=== PATIENT | male | born 1980 | race Caucasian/White ===

== ENCOUNTER 2021-01-09 23:24 | Emergency (ER) | payer SELFPAY ==
[~2021-01-09] VITALS: Ht 167.6 cm; Wt 65.9 kg
[~2021-01-09 23:24] MED LIST: 00186-0372-20 IH; PROVENTIL0.09 MG/A1 IH
[2021-01-09 23:33] VITALS: TEMP 98.5
[2021-01-10 00:13] LABS: BASO % 0.4 % (0.0-2.0); EOS % 0.3 % (0-4.0); GRAN # 7.7 (1.4-6.5); GRAN % 79.4 % (42.2-75.2); HEMATOCRIT 42.4 % (42.0-52.0); HEMOGLOBIN 14.9 g/dl (13.5-18.0); LYMPH # 0.8 (1.2-3.4); LYMPH % 8.3 % (20.0-51.0); MEAN CELL VOLUME 93 fl (80.0-100.0); MEAN CORPUSCULAR HEMOGLOBIN 33 pg (27.0-31.0); MEAN CORPUSCULAR HGB CONC 35 g/dl (33.0-37.0); MEAN PLATELET VOLUME 9.5 fl (7.4-10.4); MONO % 10.4 % (1.7-9.3); PLATELET COUNT 149 K/mm3 (130-400); RED BLOOD COUNT 4.57 M/mm3 (4.20-5.60); REDCELL DISTRIBUTION WIDTH-CV 12.5 % (11.5-14.5)
[2021-01-10 00:28] LABS: BLOOD UREA NITROGEN 14 mg/dL (9-20); CARBON DIOXIDE 27 mmol/L (22-30); CHLORIDE 94 mmol/L (98-107); CREATININE, serum 0.81 (0.66-1.25); GLUCOSE 107 mg/dL (74-106); POTASSIUM 3.2 mmol/L (3.4-5.0); SODIUM 135 mmol/L (137-145)
[2021-01-10 00:29] LABS: ALANINE AMINOTRANSFERASE 162 U/L (4-49); ALBUMIN 4.8 gm/dL (3.5-5.0); ALKALINE PHOSPHATASE 76 U/L (50-136); ANION GAP 14 mmol/L (7-16); AST,SGOT 473 U/L (15-37); BILIRUBIN,TOTAL 2.5 mg/dL (0.0-1.0); CALCIUM 9.6 mg/dL (8.4-10.2); TOTAL PROTEIN 8.3 gm/dL (6.4-8.2)
[2021-01-10 01:08] LABS: ACETAMINOPHEN < 10 ug/mL (10-30); ALCOHOL(ethanol),MEDICAL < 10 mg/dL; SALICYLATE < 1.0 mg/dL
[2021-01-10 01:18] LABS: TSH w REFLEX 2.295 uIU/mL (0.350-4.940)
[2021-01-10 06:57] LABS: TRICYCLIC ANTIDEPRESS URINE NEGATIVE
[2021-01-10 07:03] LABS: COLLECTION METHOD CLEAN CATCH
[2021-01-10 07:10] LABS: MUCOUS Present /lpf; PH 6 (5-8); SQUAMOUS EPITHELIAL 0-2 /hpf; URINE APPEARANCE Clear; URINE BACTERIA None Seen /hpf; URINE BILIRUBIN Negative (NEGATIVE); URINE BLOOD 1+ (NEGATIVE); URINE COLOR Yellow; URINE GLUCOSE Negative (NEGATIVE); URINE KETONE 1+ (NEGATIVE); URINE LEUKOCYTE ESTERASE Trace (NEGATIVE); URINE NITRATE Negative (NEGATIVE); URINE PROTEIN(semi-quant) Negative (NEGATIVE); URINE RBC 0-2 /hpf; URINE UROBILINOGEN >=4.0 mg/dL (NEGATIVE)
[2021-01-10 09:13] VITALS: BP 104/64; PULSE 76
== END 2021-01-10 09:13 | disposition home or self-care (01) ==
LOC: COL.ER 23:24
PROVIDERS: Physician Assistant
DX: R44.0 Auditory hallucinations (principal); E87.6 Hypokalemia; R94.5 Abnormal results of liver function studies; F17.220 Nicotine dependence, chewing tobacco, uncomplicated; Z88.6 Allergy status to analgesic agent
CPT/HCPCS: J1200; J1630; J2060; J3475; J7030

== ENCOUNTER 2021-02-16 14:19 | Inpatient (IN) | payer SELFPAY ==
[~2021-02-16] VITALS: Ht 167.6 cm; Wt 68.2 kg
[2021-02-16 15:11] LABS: HEMOGLOBIN 13.2 g/dl (13.5-18.0); MEAN CELL VOLUME 89 fl (80.0-100.0); MEAN CORPUSCULAR HEMOGLOBIN 33 pg (27.0-31.0); MEAN CORPUSCULAR HGB CONC 37 g/dl (33.0-37.0); MEAN PLATELET VOLUME 9.5 fl (7.4-10.4); PLATELET COUNT 156 K/mm3 (130-400); RED BLOOD COUNT 4.02 M/mm3 (4.20-5.60); REDCELL DISTRIBUTION WIDTH-CV 13.2 % (11.5-14.5)
[2021-02-16 15:13] LABS: HEMATOCRIT 35.8 % (42.0-52.0)
[2021-02-16 15:19] LABS: ALANINE AMINOTRANSFERASE 85 U/L (4-49); ALBUMIN 4.5 gm/dL (3.5-5.0); ALKALINE PHOSPHATASE 103 U/L (50-136); ANION GAP 15 mmol/L (7-16); AST,SGOT 165 U/L (15-37); BILIRUBIN,TOTAL 2.2 mg/dL (0.0-1.0); BLOOD UREA NITROGEN 4 mg/dL (9-20); CALCIUM 8.8 mg/dL (8.4-10.2); CARBON DIOXIDE 22 mmol/L (22-30); CHLORIDE 93 mmol/L (98-107); CREATININE, serum 0.54 (0.66-1.25); GLUCOSE 125 mg/dL (74-106); SODIUM 130 mmol/L (137-145); TOTAL PROTEIN 7.5 gm/dL (6.4-8.2)
[2021-02-16 15:26] LABS: ALCOHOL(ethanol),MEDICAL < 10 mg/dL; POTASSIUM 2.8 mmol/L (3.4-5.0)
[2021-02-16 15:45] LABS: COLLECTION METHOD CLEAN CATCH
[2021-02-16 15:47] LABS: LYMPHOCYTE 18 % (20.0-51.0); NEUTROPHILS 73 % (42.0-75.2)
[2021-02-16 15:57] LABS: PH 7 (5-8); SQUAMOUS EPITHELIAL None Seen /hpf; URINE APPEARANCE Clear; URINE BACTERIA None Seen /hpf; URINE BILIRUBIN Negative (NEGATIVE); URINE BLOOD 1+ (NEGATIVE); URINE COLOR Yellow; URINE GLUCOSE Negative (NEGATIVE); URINE KETONE Negative (NEGATIVE); URINE LEUKOCYTE ESTERASE Negative (NEGATIVE); URINE NITRATE Negative (NEGATIVE); URINE PROTEIN(semi-quant) 2+ (NEGATIVE); URINE RBC 0-2 /hpf; URINE UROBILINOGEN Negative (NEGATIVE)
[2021-02-16 16:00] VITALS: BP 122/79; PULSE 95; TEMP 98.8
[2021-02-16 16:05] LABS: PROLACTIN 30.7 ng/mL (3.7-17.9)
[2021-02-16 16:07] LABS: TRICYCLIC ANTIDEPRESS URINE NEGATIVE
[2021-02-16 17:11] VITALS: BP 122/79; PULSE 95; TEMP 98.8
--- NOTE | 2021-02-16 18:45 | NUR ---
Patient arrived to the floor from ED. Patient's time up here has already been eventful. Patient chewed his IV tubing in half, and dumped his urinal in the bed. Patient scored 11 on CIWA. Is hallucinating a old neighbor sitting in the corner. Also hallucinating ET; the extraterrestrial in the recliner.... "phoning home". Patient given PO medications. He did have to take one pill at a time and sit 90 degrees. Patient said his esophagus is narrow and that the doctors want to "balloon it". Patient's father called and gave this RN some information about the patient's home life. Patient's recently left him and moved to [place] along with their 14yo son. Their 19yo son has an apartment here in town. According to patient's father, the (Nieves) wants "nothing to do with him". Father would also like psych consulted and fears the patient, "may do something crazy".
[2021-02-16 19:29] VITALS: BP 130/58; PULSE 81; TEMP 98.9
--- NOTE | 2021-02-16 21:26 | NUR ---
Patient laying in bed, very agitated and having delirium upon shift start. Patient oriented to self only. Patient keeps pulling out Tele strap/box and trying to get out from bed frequently. Patient very weak and unsteady on his feet. Frequently re-oriented patient and encouraged patient to lay in bed to rest. VS stable. Currently scoring 10 on CIWA protocol. PRN Ativan 2mg given around 8pm. IVF infusing per MAR. Call light in reach. Bed alarms on. Seizure precaution maintained. Will continue to monitor.
--- NOTE | 2021-02-16 21:32 | NUR ---
Called patient's Nieves Carpenter and updated medication list. Per Nieves, patient only taking Albuterol as needed and no any other home medications.
[2021-02-16 22:01] VITALS: BP 95/63; PULSE 74; TEMP 98.8
[2021-02-17] VITALS (398 sets, daily range): BP systolic 83–120; BP diastolic 60–94; PULSE 60–90; TEMP 98.1–98.7; O2SAT 80–100
--- NOTE | 2021-02-17 06:15 | NUR ---
Patient slept about 4 hours over the night. Patient getting very anxious and keeps saying I have to go home. Patient states there is a football game today and he doesn't want to miss it. VS stable throughout the night. Patient currently scoring 7 on CIWA protocol this morning. Call light in reach. Bed alarms on. Seizure precaution maintained.
--- NOTE | 2021-02-17 06:21 | NUR ---
Patient hallucinating this morning. Patient calling out and saying, "Richard, let's play games." "Can we squish the whole toothpaste bag?". "No, no, no strawberry,", "I can't wait for Arsen Avelar to open up." Patient talking to himself on and off this morning.
--- NOTE | 2021-02-17 07:07 | NUR ---
Patient stood up from bed, setting the bed alarm off. Patient told this RN, "You're gonna have to call the fucking spot billing clerk, 'cause I don't wanna be here". This RN reminded the patient that he had a seizure and is detoxing and needed to be in the hospital to get better, and this was the safest place to be for him. The patient then stated, "I should have just fucking when I had that seizure". Patient then told this RN he didn't want anyone in his room, and does not want his father to visit.
--- NOTE | 2021-02-17 07:21 | NUR ---
Patient told this RN he is going to, "jump out that fucking window". PCT has been placed with the patient. This RN attempted to contact warehouse delivery driver and has not gotten an answer. Patient began punching the bed and said he was not going to stay here.
[2021-02-17 07:46] LABS: HEMOGLOBIN 11.4 g/dl (13.5-18.0); MEAN CORPUSCULAR HEMOGLOBIN 33 pg (27.0-31.0); MEAN CORPUSCULAR HGB CONC 34 g/dl (33.0-37.0); MEAN PLATELET VOLUME 9.6 fl (7.4-10.4); PLATELET COUNT 122 K/mm3 (130-400); RED BLOOD COUNT 3.42 M/mm3 (4.20-5.60); REDCELL DISTRIBUTION WIDTH-CV 14.1 % (11.5-14.5)
[2021-02-17 07:53] LABS: ALANINE AMINOTRANSFERASE 77 U/L (4-49); ALBUMIN 3.7 gm/dL (3.5-5.0); ALKALINE PHOSPHATASE 78 U/L (50-136); ANION GAP 7 mmol/L (7-16); AST,SGOT 144 U/L (15-37); BILIRUBIN,TOTAL 1.8 mg/dL (0.0-1.0); BLOOD UREA NITROGEN < 2 mg/dL (9-20); CARBON DIOXIDE 25 mmol/L (22-30); CHLORIDE 104 mmol/L (98-107); CREATININE, serum 0.46 (0.66-1.25); GLUCOSE 84 mg/dL (74-106); MAGNESIUM 1.5 mg/dL (1.6-2.3); POTASSIUM 3.9 mmol/L (3.4-5.0); SODIUM 137 mmol/L (137-145); TOTAL PROTEIN 6.3 gm/dL (6.4-8.2)
[2021-02-17 07:56] LABS: HEMATOCRIT 33.1 % (42.0-52.0); MEAN CELL VOLUME 97 fl (80.0-100.0)
[2021-02-17 09:22] LABS: BAND 5 % (0-10); EOSINOPHIL 2 % (0-4); LYMPHOCYTE 23 % (20.0-51.0); METAMYELOCYTE 2 % (0-0); NEUTROPHILS 66 % (42.0-75.2)
[2021-02-17 09:23] LABS: PLATELET ESTIMATE DECREASED (NORMAL)
--- NOTE | 2021-02-17 12:17 | NUR ---
Patient was moved down to ICU bed 2 by this RN and Dianne - RN.
--- NOTE | 2021-02-17 12:30 | NUR ---
Pt lungs CTA, HR RRR. No edema present. Multiple bruises present throughout, mainly to LUE and L side of abdomen. Pt confused prior to sedative.
[2021-02-17 13:25] LABS: FOLATE (FOLIC ACID) 8.7 ng/mL (2.0-20.0)
--- NOTE | 2021-02-17 13:40 | NUR ---
Pt awoke stating he needed to urinate, urinated in the bed prior to urinal being place. Pericare provided. Pt slept through without issues. BLE restraints released, pt sleeping at this time not thrashing.
--- NOTE | 2021-02-17 14:00 | NUR ---
SW met with patient while he was inpatient on Medical. Patient was transported to ICU. Intake completed with patient. Patient states that he lives in [place] alone, but spouse Nieves [phone] lives in [place]. Patient states thta he has a son named Gina [phone]. Patient states that he does not utilize DME and is independent with ADL's, patient states that his PCP is Dr. Dino Aviles, pharmacy is [facility]. Patient states that he does not have a DPOA-HC and does not wish to appoint one. Patient also state that he does not have insurance. Patient states that his plan is to go home up on DC. Patient will need placement to due aggressive behavior/threats to staff and self.
--- NOTE | 2021-02-17 15:47 | NUR ---
Restraints removed at this time, pt remains drowsy will arouse to stimulation and movement but falls back asleep. Pt has not been combatitive recently. Will continue close observation.
--- NOTE | 2021-02-17 17:24 | NUR ---
SUMMARY NOTE: Pt arrived to ICU bed 2 around 11:45, pt agitated yelling at staff and attempting to get out of bed. Security called, Dr. Minor at bedside ordered Ativan 2mg IV x1 now. Pt continued to be agitated and fight staff threatening them. 1147 5mg Haldol IM administered and Precedex initiated at 0.7mcg/kg/hr per Dr. Minor's instructions, IV infiltrated, precedex held to establish new IV. 1151 Pt continues to fight staff. Second dose of haldol IM administered to opposing deltoid per Dr. Minor, pt continues to require staff at bedside for safety as he is attempting to rip off all cords attached to him, and "leave". 1153 4 point restraints initiated once medications were not effective in calming patient per Dr. Minor. 1157 patient yelling out "just kill me" and at staff, Dr Barahona in unit and requests Precedex to be set at 1mcg/kg/hr once IV is started. 1201 20G started to LFA by ISHAAN Post, Precedex set to 1mcg/kg/hr, 17.1ml/hr. Pt calming down but still mumbling to staff, remains in restraints 1206 Precedex decreased to 0.8 mcg/kg/hr, 13.6ml/hr per Dr. Barahona 1215 Precedex decreased to 0.7 mcg/kg/hr, 11.9mls/hr, pt now sleeping, see flowsheet for continued titration.
--- NOTE | 2021-02-17 19:28 | NUR ---
Pt awake for about the last hour, not thrashing or combative. Occasionally pulling at lines, but settles with encouragement. Asking where he is, attempted to reorient. Water provided and patient accepted. Refuses a meal at this time. External catheter in place, draining without issues.
[2021-02-18] VITALS (530 sets, daily range): BP systolic 96–122; BP diastolic 56–94; PULSE 56–94; TEMP 97.8–98.7; O2SAT 66–100
--- NOTE | 2021-02-18 02:42 | NUR ---
AT 0144 PATIENT IS IN ROOM ALERT AND AWAKE ASKING IF HE COULD GO HOME.. HOSPITALIST CONTACTED, DENIES REQUEST, LAW ENFORCEMENT CALLED, AND ARRIVE TO SPEAK WITH PATIENT, AT 215 PATIENT IS COOPERATIVE AND AGREES TO STAY AT FACILITY, MEDS ADMINSTERED PER ORDER, PATIENT RELAXING IN ROOM AT THIS TIME 0230
[2021-02-18 07:23] LABS: HEMATOCRIT 40.1 % (42.0-52.0); HEMOGLOBIN 12.8 g/dl (13.5-18.0); MEAN CELL VOLUME 101 fl (80.0-100.0); MEAN CORPUSCULAR HEMOGLOBIN 32 pg (27.0-31.0); MEAN CORPUSCULAR HGB CONC 32 g/dl (33.0-37.0); MEAN PLATELET VOLUME 8.9 fl (7.4-10.4); PLATELET COUNT 150 K/mm3 (130-400); RED BLOOD COUNT 3.96 M/mm3 (4.20-5.60); REDCELL DISTRIBUTION WIDTH-CV 14.3 % (11.5-14.5)
[2021-02-18 07:30] LABS: PROTHROMBIN TIME 11.1 SECONDS (9.7-12.8)
[2021-02-18 07:43] LABS: ALANINE AMINOTRANSFERASE 151 U/L (4-49); ALKALINE PHOSPHATASE 79 U/L (50-136); ANION GAP 8 mmol/L (7-16); AST,SGOT 305 U/L (15-37); BILIRUBIN,TOTAL 1.6 mg/dL (0.0-1.0); CARBON DIOXIDE 25 mmol/L (22-30); CHLORIDE 106 mmol/L (98-107); CREATININE, serum 0.41 (0.66-1.25); GLUCOSE 67 mg/dL (74-106); POTASSIUM 4.2 mmol/L (3.4-5.0); SODIUM 140 mmol/L (137-145); TOTAL PROTEIN 6.9 gm/dL (6.4-8.2)
[2021-02-18 07:47] LABS: BLOOD UREA NITROGEN < 2 mg/dL (9-20)
--- NOTE | 2021-02-18 08:00 | NUR ---
[facility] nurse reported no PICC needed at this time.
[2021-02-18 08:20] LABS: BAND 19 % (0-10); BASOPHIL 1 % (0-2); EOSINOPHIL 3 % (0-4); LYMPHOCYTE 15 % (20.0-51.0); METAMYELOCYTE 1 % (0-0); MYELOCYTE 1 % (0-0); NEUTROPHILS 50 % (42.0-75.2)
[2021-02-18 08:21] LABS: PLATELET ESTIMATE NORMAL (NORMAL)
--- NOTE | 2021-02-18 10:32 | NUR ---
Sharepoint Architect collaborated with patient's RN, Ira who advised a consult was put in for in house psychiatrist, Dr. Dejesus. Currently patient is not medically cleared for a screen from [facility].
--- NOTE | 2021-02-18 11:17 | NUR ---
MR. STARK IS EATING BREAKFAST AND SITTIN UP IN BED. MR. STARK KEEPS ASKING ABOUT HIS PHONE AND WHEN HE CAN LEAVE AND I TOLD HIM THAT HE CANNOT HAVE HIS PHONE AND HE HAS TO BE MEDICALLY CLEARED. THESE ANSWER MAKE HIM A LITTLE RESTLESS AND AGITATED. ACCORDING TO KENDRICK THE PATIENT RECIEVED 0.5 MG ATIVAN AND VALIUM. THE PATIENT IS NOW SLEEPING AND IS CALM
--- NOTE | 2021-02-18 16:00 | NUR ---
/ ORLY HAS STATED THAT HE SAID THE ONLY REASON WHY HE STATED THAT HE WANTED TO HURT HIMSELF WAS HE THOUGHT IT WOULD GET HIM OUT THE HOSPITAL FASTER
--- NOTE | 2021-02-18 17:32 | NUR ---
SAW MI AND STATED THAT HE CAN COME OFF SUICIDE PRECAUTIONS AND TO CALL [facility] TO MAKE A FOLLOW UP APPT FOR WHEN HE IS DISCHARGED. DR. GUTIERREZ WAS NOTIFIED OF PATTI DECISIONS AND AGREED. DUE TO DETOX OF ETOH MR. VILLALBA WILL STAY INTO TOMORROW FOR MONITORING. [facility] WAS CALLED AND PAPER WORK IS BEING SENT OVER VIA FAX FOR MR. STARK TO FILL OUT FOR FOLLOW UP APPT
--- NOTE | 2021-02-18 19:30 | NUR ---
Patient laying in bed talking on cell phone. Assessment done. CIWA score = 4; but denies needs. Denies thoughts of self harm or suicidal thoughts at this time. Has been up to bathroom by self, gait steady. Ok'd to get up by self.
[2021-02-19] VITALS (44 sets, daily range): BP systolic 120–124; BP diastolic 91–101; PULSE 71–94; TEMP 97.6–98.6; O2SAT 85–100
--- NOTE | 2021-02-19 00:40 | NUR ---
Ativan 0.5mg IV given for CIWA of 4. Has been on the phone with friends most of evening, talks about frequently and states she's in [place] with his youngest son. Will monitor for need of more PRNs.
--- NOTE | 2021-02-19 04:15 | NUR ---
Patient laying in bed watching golf on TV. States hasn't slept at all, "I have insomnia, so I don't really sleep much." Patient did sleep for short periods earlier in the night. Has been up and around in room on own. Denies needs at this time
[2021-02-19 05:36] LABS: HEMATOCRIT 38.7 % (42.0-52.0); MEAN CELL VOLUME 98 fl (80.0-100.0); MEAN CORPUSCULAR HEMOGLOBIN 33 pg (27.0-31.0); MEAN CORPUSCULAR HGB CONC 34 g/dl (33.0-37.0); MEAN PLATELET VOLUME 9.1 fl (7.4-10.4); PLATELET COUNT 226 K/mm3 (130-400); RED BLOOD COUNT 3.94 M/mm3 (4.20-5.60); REDCELL DISTRIBUTION WIDTH-CV 13.8 % (11.5-14.5)
[2021-02-19 05:48] LABS: ANION GAP 5 mmol/L (7-16); CARBON DIOXIDE 30 mmol/L (22-30); CHLORIDE 100 mmol/L (98-107); CREATININE, serum 0.49 (0.66-1.25); GLUCOSE 91 mg/dL (74-106); POTASSIUM 4.2 mmol/L (3.4-5.0); SODIUM 136 mmol/L (137-145)
[2021-02-19 05:49] LABS: BLOOD UREA NITROGEN < 2 mg/dL (9-20)
--- NOTE | 2021-02-19 06:10 | NUR ---
Patient sitting up on side of bed putting shorts on. Has cardiac rehabilitation specialist unhooked. States "I'm sorry, I unhooked it to get my clothes. I might as well get dressed, I'm hoping to go home today." Monitor plugged back in, encouraged patient to rest if able. Denies needs.
[2021-02-19 06:21] LABS: BAND 4 % (0-10); LYMPHOCYTE 27 % (20.0-51.0); METAMYELOCYTE 1 % (0-0); NEUTROPHILS 58 % (42.0-75.2); PLATELET ESTIMATE NORMAL (NORMAL)
--- NOTE | 2021-02-19 10:59 | NUR ---
FOLLOW UP APPT MADE FOR PATIENT WITH [facility] AT 0900 ON 03/04/21
--- NOTE | 2021-02-19 11:47 | NUR ---
Warehouse Man collaborated with Dr. Dejesus, Psychiatrist on 02/18/21 who recommends that patient can return home with outpatient follow up from [facility]. SW attended clinical rounds with the team and patient to discharge home today. SW met with patient who is agreeable to follow up with [facility]. SW contacted [facility] Admissions and gave referral and contact information. [facility] Admissions to contact patient to set up intake.
--- NOTE | 2021-02-19 12:08 | NUR ---
PATIENT DISCHARGED. HIS FATHER IS HERE TO PICK HIM UP. ALL BELONGINGS RETURNED. GUN AND BULLETS RETURNED TO PATIENT FROM SECURITY WHO THEN WALKS PATIENT OUT TO THE CAR. ALL DISCHARGE PAPERWORK REVIEWED WITH PATIENT PRIOR TO DEPARTURE. APPOINTMENT SET UP FOR THIS PATIENT WITH [facility], THEY WILL BE CALLING HIM SOON TO GO OVER INFORMATION PRIOR TO THE APPOINTMENT. PATIENT ALSO INSTRUCTED TO CALL HIS PCP, DR. AVALOS FOR FOLLOW UP APPOINTMENT. HE VERBALIZES UNDERSTANDING.
== END 2021-02-19 12:00 | disposition home or self-care (01) | DRG 897 ==
LOC: COL.ER 14:19 → MEDICAL 16:14 → COL.ER 16:14 → ICU 02-17 11:38 → MEDICAL 02-17 11:38 → ICU 02-19 12:00
PROVIDERS: Emergency Medicine; Physician Assistant; Student in an Organized Health Care Education/Training Program; ADMIT Internal Medicine
PROC: 0CQ1XZZ Repair Lower Lip, External Approach (ICD-10-PCS; principal; 2021-02-16)
DX: F10.239 Alcohol dependence with withdrawal, unspecified (principal); E87.1 Hypo-osmolality and hyponatremia; R45.851 Suicidal ideations; R56.9 Unspecified convulsions; J45.909 Unspecified asthma, uncomplicated; F17.200 Nicotine dependence, unspecified, uncomplicated; E87.6 Hypokalemia; S01.511A Laceration without foreign body of lip, initial encounter; R74.01 Elevation of levels of liver transaminase levels
CPT/HCPCS: OP; 99223-AI; 99233-AI; 99239; J1630; J1650; J2060; J3475; J3480; J7030

== ENCOUNTER 2021-07-12 15:38 | Emergency (ER) | payer BC ==
[~2021-07-12] VITALS: Ht 167.6 cm; Wt 63.6 kg
[2021-07-12 15:49] VITALS: BP 143/100; PULSE 103; TEMP 98.7
== END 2021-07-12 16:30 | disposition home or self-care (01) ==
LOC: COL.ER 15:38
DX: T18.128A Food in esophagus causing other injury, initial encounter (principal); X58.XXXA Exposure to other specified factors, initial encounter

== ENCOUNTER 2021-08-24 18:07 | Inpatient (IN) | payer BC ==
[~2021-08-24] VITALS: Ht 167.6 cm; Wt 68.6 kg
[2021-08-24] VITALS (22 sets, daily range): O2SAT 96–100
[2021-08-24 18:52] LABS: BASO % 0.4 % (0.0-2.0); EOS % 0.3 % (0.0-4.0); GRAN # 5.1 K/mm3 (1.4-6.5); GRAN % 75.7 % (42.2-75.2); HEMATOCRIT 40.1 % (42.0-52.0); HEMOGLOBIN 14.6 g/dl (13.5-18.0); LYMPH % 14.3 % (20.0-51.0); MEAN CELL VOLUME 87 fl (80.0-100.0); MEAN CORPUSCULAR HEMOGLOBIN 32 pg (27-31); MEAN CORPUSCULAR HGB CONC 36 g/dl (33.0-37.0); MEAN PLATELET VOLUME 10.3 fl (7.4-10.4); MONO # 0.6 K/mm3 (0.1-0.6); MONO % 8.9 % (1.7-9.3); PLATELET COUNT 91 K/mm3 (130-400); RED BLOOD COUNT 4.61 M/mm3 (4.20-5.60); REDCELL DISTRIBUTION WIDTH-CV 13.2 % (11.5-14.5)
[2021-08-24 19:00] LABS: ACETONE,SERUM NEGATIVE
[2021-08-24 19:09] LABS: ALANINE AMINOTRANSFERASE 62 U/L (0-55); ALBUMIN 3.9 gm/dL (3.5-5.0); ALKALINE PHOSPHATASE 72 U/L (40-150); ANION GAP 24 mmol/L (7-16); AST,SGOT 105 U/L (5-34); BILIRUBIN,TOTAL 1.2 mg/dL (0.2-1.2); BLOOD UREA NITROGEN 11 mg/dL (9-21); CALCIUM 8.7 mg/dL (8.4-10.2); CARBON DIOXIDE 21 mmol/L (22-29); CREATININE, serum 0.63 mg/dL (0.72-1.25); GLUCOSE 109 mg/dL (70-99); LIPASE 28 U/L (8-78); POTASSIUM 3.1 mmol/L (3.5-4.5); SODIUM 131 mmol/L (136-145); TOTAL PROTEIN 7.6 gm/dL (6.2-8.1)
[2021-08-24 19:12] LABS: CHLORIDE 86 mmol/L (98-107)
[2021-08-24 20:56] LABS: COLLECTION METHOD CLEAN CATCH
[2021-08-24 21:06] LABS: PH 7 (5-8); SQUAMOUS EPITHELIAL 0-2 /hpf (0-10); URINE APPEARANCE Clear (CLEAR/HAZY); URINE BACTERIA None Seen /hpf (NONE SEEN); URINE BILIRUBIN Negative (NEGATIVE); URINE BLOOD Negative (NEGATIVE); URINE COLOR Yellow (YELLOW); URINE GLUCOSE Negative (NEGATIVE); URINE KETONE 1+ (NEGATIVE); URINE LEUKOCYTE ESTERASE Negative (NEGATIVE); URINE NITRATE Negative (NEGATIVE); URINE PROTEIN(semi-quant) Negative (NEGATIVE); URINE RBC None Seen /hpf (0-2); URINE UROBILINOGEN Negative (NEGATIVE)
[2021-08-25] VITALS (485 sets, daily range): BP systolic 114–146; BP diastolic 74–90; PULSE 66–98; TEMP 98–98.6; O2SAT 71–100
[2021-08-25 00:35] LABS: MAGNESIUM 1.5 mg/dL (1.6-2.6); PHOSPHOROUS 1.3 mg/dL (2.3-4.7)
[2021-08-25] MEDS ORDERED: PROAIR HFA0.09 MG/AC IH (00:37)
[2021-08-25] MEDS ORDERED: 00186-0372-20 IH (00:37)
[2021-08-25 00:58] LABS: TRICYCLIC ANTIDEPRESS URINE NEGATIVE
[2021-08-25 07:05] LABS: BASO % 0.5 % (0.0-2.0); EOS # 0.1 K/mm3 (0.0-0.7); EOS % 3.3 % (0.0-4.0); GRAN # 2.4 K/mm3 (1.4-6.5); GRAN % 65.3 % (42.2-75.2); HEMOGLOBIN 12.9 g/dl (13.5-18.0); LYMPH # 0.9 K/mm3 (1.2-3.4); LYMPH % 23.6 % (20.0-51.0); MEAN CELL VOLUME 89 fl (80.0-100.0); MEAN CORPUSCULAR HEMOGLOBIN 31 pg (27-31); MEAN CORPUSCULAR HGB CONC 35 g/dl (33.0-37.0); MEAN PLATELET VOLUME 10.5 fl (7.4-10.4); MONO # 0.3 K/mm3 (0.1-0.6); MONO % 6.8 % (1.7-9.3); PLATELET COUNT 51 K/mm3 (130-400); RED BLOOD COUNT 4.12 M/mm3 (4.20-5.60); REDCELL DISTRIBUTION WIDTH-CV 13.2 % (11.5-14.5)
[2021-08-25 07:06] LABS: HEMATOCRIT 36.5 % (42.0-52.0)
[2021-08-25 07:10] LABS: INR 1.2 (0.8-3.0); PROTHROMBIN TIME 13.1 SECONDS (9.7-12.8)
[2021-08-25 07:13] LABS: PARTIAL THROMBOPLASTIN TIME 27.4 SECONDS (26.0-37.0)
[2021-08-25 07:17] LABS: CALCIUM 7.9 mg/dL (8.4-10.2); CREATININE, serum 0.65 mg/dL (0.72-1.25)
[2021-08-25 08:17] LABS: MAGNESIUM 2.3 mg/dL (1.6-2.6); PHOSPHOROUS 1.2 mg/dL (2.3-4.7)
--- NOTE | 2021-08-25 08:30 | NUR ---
Alert and oriented and resting in bed; cooperative with staff. Reports some intermittent nausea but denies any pain, shortness of breath or other complaints. Will continue to monitor.
[2021-08-25 10:26] LABS: PHOSPHOROUS 0.9 mg/dL (2.3-4.7)
[2021-08-25 10:29] LABS: POTASSIUM 2.9 mmol/L (3.5-4.5)
--- NOTE | 2021-08-25 11:46 | NUR ---
SW met with patient to complete intake. Patient provides that he lives alone in [facility]. Point of contact he states is his good friend Srinivas Pacheco [phone]. Patient states that he does not utilize DME and is independent with ADL's. PCP is Dr. Monroy, pharmacy is [facility]. Patient provides that he does not have anyone appointed as his DPOA. DC plan is to return to his home. SW will continue to follow. DC plan: home
--- NOTE | 2021-08-25 18:15 | NUR ---
Pt. to unit from ICU. He is alert & oriented. Denies pain. Reports slight nausea. Remains on tele. Orientation provided to room, call light, visiting hours. He has no further questions at this time. Call light is within his reach
[2021-08-25 19:12] LABS: PHOSPHOROUS 2.5 mg/dL (2.3-4.7); POTASSIUM 3.1 mmol/L (3.5-4.5)
--- NOTE | 2021-08-26 02:07 | NUR ---
PATIENT ALERT AND ORIENTED. HAS BEEN INDEPENDENT IN HIS ROOM. DENYING PAIN, NAUSEA, VOMITING. IV R HAND PATENT WITH FLUIDS INFUSING. CIWA SCORING 1. NOT SLEEPING MUCH TONIGHT. K+ WAS 3.1 AND WAS REPLACED WITH EFFER K X3 DOSES. CURRENTLY RESTING IN BED, WATCHING TV.
[2021-08-26 04:04] VITALS: BP 145/85; PULSE 71; TEMP 98.1
[2021-08-26 06:44] LABS: BASO % 0.7 % (0.0-2.0); EOS # 0.2 K/mm3 (0.0-0.7); EOS % 4.1 % (0.0-4.0); GRAN # 2.5 K/mm3 (1.4-6.5); GRAN % 61.1 % (42.2-75.2); HEMOGLOBIN 12.9 g/dl (13.5-18.0); LYMPH # 1.1 K/mm3 (1.2-3.4); LYMPH % 26.6 % (20.0-51.0); MEAN CELL VOLUME 89 fl (80.0-100.0); MEAN CORPUSCULAR HEMOGLOBIN 31 pg (27-31); MEAN CORPUSCULAR HGB CONC 35 g/dl (33.0-37.0); MEAN PLATELET VOLUME 11.5 fl (7.4-10.4); MONO # 0.3 K/mm3 (0.1-0.6); MONO % 6.8 % (1.7-9.3); RED BLOOD COUNT 4.11 M/mm3 (4.20-5.60); REDCELL DISTRIBUTION WIDTH-CV 13.3 % (11.5-14.5)
[2021-08-26 06:49] LABS: HEMATOCRIT 36.7 % (42.0-52.0)
[2021-08-26 06:51] LABS: PLATELET COUNT 48 K/mm3 (130-400)
--- NOTE | 2021-08-26 07:25 | NUR ---
Nieves Davis made aware of low plt.
[2021-08-26 07:49] VITALS: BP 129/61; PULSE 78; TEMP 99.3
--- NOTE | 2021-08-26 08:25 | NUR ---
Patient sitting up in bed. He did well with breakfast. Ivf per orders. No signs or symptoms of detox at this time. Will let him rest.
[2021-08-26] MEDS ORDERED: THIAMINE 1100 MG/TAB PO (09:39)
[2021-08-26] MEDS ORDERED: FOLIC ACID 11 MG/TA1 PO (09:39)
[2021-08-26 10:07] LABS: ALBUMIN 2.9 gm/dL (3.5-5.0); CALCIUM 7.5 mg/dL (8.4-10.2); CREATININE, serum 0.49 mg/dL (0.72-1.25); MAGNESIUM 1.7 mg/dL (1.6-2.6); PHOSPHOROUS 1.8 mg/dL (2.3-4.7); POTASSIUM 3.3 mmol/L (3.5-4.5)
[2021-08-26 12:00] VITALS: BP 130/92; PULSE 72; TEMP 98.5
--- NOTE | 2021-08-26 15:08 | NUR ---
deer farm worker met with patient to discuss Divide screen. Patient does not endorse any SI/HI thoughts or auditory/visual hallucinations. Instead he states that his mind is just "constantly going". Patient is provided the drug and alcohol resource list and is encouraged to reach out for his mental health needs. Educated the patient that his PCP, Dr. Godwin would be able to help him as well. Zana Pickett notified of patient not meeting the criteria for being screened at an inpatient.
[2021-08-26 15:49] VITALS: BP 138/92; PULSE 67; TEMP 98.1
--- NOTE | 2021-08-26 17:36 | NUR ---
Patient sitting up in bed eating dinner. was notifed because patient thought he would be going home today, but he is agreeable to stay the night. Vitals remains stable. No medication required on detox scale though this shift
--- NOTE | 2021-08-26 19:13 | NUR ---
TX GIVEN VIA MOUTHPIECE, TOLERATED WELL.
[2021-08-26 19:39] VITALS: BP 139/89; PULSE 75; TEMP 98.3
--- NOTE | 2021-08-26 23:13 | NUR ---
AT START OF SHIFT PATIENT WAS ALERT AND ORIENTED. DENIED PAIN, NAUSEA AND VOMITING. SCORING 2 ON CIWA SCALE. HS MEDICATIONS WERE GIVEN WITHOUT. ISSUE. PATIENT WAS PLEASANT. IV TO L FA WAS PATENT AND FLUSHED. AROUND 2300 PATIENT CAME OUT OF HIS ROOM STATING HE WAS "GOING TO RUN HOME AND CHANGE" DISCUSSED WITH PATIENT THAT THIS WAS NOT POSSIBLE AND THAT HE WOULD HAVE TO RETURN TO ER AND GET READMITTED AND LEAVE AMA. PATIENT WAS VERY DISTRESSED AND PERSISTENT AND BECAME VISIBLY ANGRY. CALL PLACED TO SARBJIT MOSS, WHO CAME UP TO SEE PATIENT AND DISCUSSED WITH HIM LEAVING AMA. PATIENT SIGNED AMA FORMS AND IV TO L FA WAS REMOVED. PATIENT WALKED HIMSELF OUT.
== END 2021-08-26 23:10 | disposition left against medical advice (07) | DRG 894 ==
LOC: COL.ER 18:07 → SURG 22:25 → ICU 22:25 → SURG 08-25 18:03
PROVIDERS: Internal Medicine; Nurse Practitioner Family; Physician Assistant; ADMIT Student in an Organized Health Care Education/Training Program
DX: F10.139 Alcohol abuse with withdrawal, unspecified (principal); E87.1 Hypo-osmolality and hyponatremia; E87.2 Acidosis; F17.210 Nicotine dependence, cigarettes, uncomplicated; D69.6 Thrombocytopenia, unspecified; E87.8 Other disorders of electrolyte and fluid balance, not elsewhere classified; E87.6 Hypokalemia; J45.909 Unspecified asthma, uncomplicated; E83.39 Other disorders of phosphorus metabolism; E83.42 Hypomagnesemia; I45.10 Unspecified right bundle-branch block; Y90.6 Blood alcohol level of 120-199 mg/100 ml
CPT/HCPCS: 99223-AI; 99232-AI; 99233-AI; 99238; J2060; J2405; J3475; J3480; J7030; J7040; J7042; J7050

== ENCOUNTER 2021-08-27 00:25 | Emergency (ER) | payer BC ==
[~2021-08-27] VITALS: Ht 167.6 cm; Wt 68.2 kg
[~2021-08-27 00:25] MED LIST changes: +FOLIC ACID 11 MG/TA1 PO; +PROAIR HFA0.09 MG/AC IH; +THIAMINE 1100 MG/TAB PO
[2021-08-27 01:52] VITALS: BP 144/87; PULSE 79
== END 2021-08-27 01:59 | disposition home or self-care (01) ==
LOC: COL.ER 00:25
DX: R53.81 Other malaise (principal)

== ENCOUNTER 2021-10-31 16:25 | Inpatient (IN) | payer OTHER ==
[2021-10-31] VITALS (243 sets, daily range): BP systolic 117–131; BP diastolic 84–91; PULSE 87–102; TEMP 98.5–99.4; O2SAT 90–100
[~2021-10-31] VITALS: Ht 167.6 cm; Wt 65.3 kg
[~2021-10-31 16:25] MED LIST changes: +MAG-OX 400400 MG/TAB PO; +ZOFRAN 4MG T4 MG/TAB PO
[2021-10-31 17:24] LABS: BASO % 0.7 % (0.0-2.0); EOS % 0.7 % (0.0-4.0); GRAN # 5.2 K/mm3 (1.4-6.5); GRAN % 86.2 % (42.2-75.2); HEMOGLOBIN 12.9 g/dl (13.5-18.0); LYMPH # 0.3 K/mm3 (1.2-3.4); LYMPH % 4.9 % (20.0-51.0); MEAN CELL VOLUME 93 fl (80.0-100.0); MEAN CORPUSCULAR HEMOGLOBIN 33 pg (27-31); MEAN CORPUSCULAR HGB CONC 36 g/dl (33.0-37.0); MEAN PLATELET VOLUME 10.1 fl (7.4-10.4); MONO # 0.4 K/mm3 (0.1-0.6); MONO % 6.8 % (1.7-9.3); RED BLOOD COUNT 3.91 M/mm3 (4.20-5.60); REDCELL DISTRIBUTION WIDTH-CV 16.4 % (11.5-14.5)
[2021-10-31 17:31] LABS: HEMATOCRIT 36.3 % (42.0-52.0)
[2021-10-31 17:32] LABS: PLATELET COUNT 20 K/mm3 (130-400)
[2021-10-31 17:39] LABS: ALBUMIN 3.9 gm/dL (3.5-5.0); CALCIUM 8.2 mg/dL (8.4-10.2); CREATININE, serum 0.56 mg/dL (0.72-1.25); TOTAL PROTEIN 7.4 gm/dL (6.2-8.1)
[2021-10-31 17:42] LABS: POTASSIUM 2.9 mmol/L (3.5-4.5)
--- NOTE | 2021-10-31 18:30 | NUR ---
REPORT RECIEVED FROM BERENICE QUIROS. PT STILL IN ED. WILL PASS REPORT OFF TO LAZARO QUIROS.
[2021-10-31 19:50] LABS: INR 1.1 (0.8-3.0); PROTHROMBIN TIME 12.7 SECONDS (9.7-12.8)
[2021-10-31 19:52] LABS: PARTIAL THROMBOPLASTIN TIME 30.3 SECONDS (26.0-37.0)
[2021-11-01] VITALS (1103 sets, daily range): BP systolic 109–137; BP diastolic 78–101; PULSE 79–106; TEMP 98–99; O2SAT 62–100
[2021-11-01 02:25] LABS: CALCIUM 7.6 mg/dL (8.4-10.2); CREATININE, serum 0.57 mg/dL (0.72-1.25); POTASSIUM 3.8 mmol/L (3.5-4.5)
[2021-11-01 02:43] LABS: COLLECTION METHOD CLEAN CATCH
[2021-11-01 02:49] LABS: MUCOUS Present (NOT PRESENT); PH 7 (5-8); SQUAMOUS EPITHELIAL None Seen /hpf (0-10); URINE APPEARANCE Clear (CLEAR/HAZY); URINE BACTERIA None Seen /hpf (NONE SEEN); URINE BILIRUBIN Negative (NEGATIVE); URINE BLOOD 1+ (NEGATIVE); URINE COLOR Amber (YELLOW); URINE GLUCOSE Negative (NEGATIVE); URINE KETONE 1+ (NEGATIVE); URINE LEUKOCYTE ESTERASE Negative (NEGATIVE); URINE NITRATE Negative (NEGATIVE); URINE PROTEIN(semi-quant) 1+ (NEGATIVE); URINE RBC 0-2 /hpf (0-2); URINE UROBILINOGEN >=4.0 (NEGATIVE); URINE WBC 0-2 /hpf (0-2)
[2021-11-01 02:55] LABS: TRICYCLIC ANTIDEPRESS URINE NEGATIVE
[2021-11-01 05:32] LABS: BASO % 0.5 % (0.0-2.0); EOS % 1.4 % (0.0-4.0); GRAN # 1.3 K/mm3 (1.4-6.5); GRAN % 57.8 % (42.2-75.2); HEMOGLOBIN 11.8 g/dl (13.5-18.0); LYMPH # 0.7 K/mm3 (1.2-3.4); LYMPH % 32.1 % (20.0-51.0); MEAN CELL VOLUME 95 fl (80.0-100.0); MEAN CORPUSCULAR HEMOGLOBIN 33 pg (27-31); MEAN CORPUSCULAR HGB CONC 35 g/dl (33.0-37.0); MEAN PLATELET VOLUME 9.8 fl (7.4-10.4); MONO # 0.2 K/mm3 (0.1-0.6); MONO % 7.7 % (1.7-9.3); RED BLOOD COUNT 3.57 M/mm3 (4.20-5.60); REDCELL DISTRIBUTION WIDTH-CV 16.3 % (11.5-14.5)
[2021-11-01 05:56] LABS: ALBUMIN 3.3 gm/dL (3.5-5.0); BILIRUBIN,TOTAL 3.5 mg/dL (0.2-1.2); CALCIUM 7.8 mg/dL (8.4-10.2); CREATININE, serum 0.59 mg/dL (0.72-1.25); TOTAL PROTEIN 5.9 gm/dL (6.2-8.1)
[2021-11-01 06:02] LABS: HEMATOCRIT 33.8 % (42.0-52.0)
[2021-11-01 06:03] LABS: PLATELET COUNT 11 K/mm3 (130-400)
--- NOTE | 2021-11-01 06:30 | NUR ---
PT IS ALERT AND ORIENTED X4, DENIES PAIN OR NAUSEA. VISIBLE HAND TREMOR NOTED. IV SITE TO R LOWER FOREARM NOTED, NO REDNESS, SWELLING, DRAINAGE NOTED; D5NS INFUSING AT 125ML/HR.
[2021-11-01 08:02] LABS: MAGNESIUM 1.6 mg/dL (1.6-2.6)
--- NOTE | 2021-11-01 09:13 | NUR ---
The patient was admitted for alcohol withdrawal and tremors. JOSESITO met with the patient to discuss discharge plan. The patient lives alone in [place]. He is currently going through a divorce. He states that he does not have a job right now. He reports independence with ADLs and does not have any DME. The patient's PCP is Dr. Dino Godwin and he states that he did go to his appt with Dr. Godwin after his last hospital stay. He receives his medications at [facility] in [facility]. The patient confirms that he still has health insurance through [employer]. The patient does not have a DPOA-HC and he was not interested in completing one at this time. The patient states that him and his are not legally yet. SW informed him that his would still be his legal next of kin and decision maker, if he was unable to make decisions, since they are not yet and he does not have a DPOA-HC done. The patient verbalized understanding and states that he is okay with his , Nieves (ph#[phone]), making decisions for him. The patient states that his parents: Evens (ph#[phone]) live in [place] and know that he is here. The patient plans on returning home upon discharge. JOSESITO addressed the patient's alcohol use. He got a DUI a week ago. 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 The patient states that he has been going to AA meetings and that he gave all his alcohol away to his neighbors. JOSESITO discussed inpatient/outpatient treatment. The patient states that he is not interested in treatment at this time, but may be after he goes to court on 11/13. 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 The patient states that he plans on utilizing the [employer] for transportation and plans to ride the full route to get familiar with the stops. He had no other concerns for JOSESITO at this time. *Discharge plan: home*
[2021-11-01 15:20] LABS: BASO % 0.6 % (0.0-2.0); EOS # 0.1 K/mm3 (0.0-0.7); EOS % 1.9 % (0.0-4.0); GRAN # 1.8 K/mm3 (1.4-6.5); GRAN % 55.5 % (42.2-75.2); LYMPH # 1.2 K/mm3 (1.2-3.4); LYMPH % 36.4 % (20.0-51.0); MEAN CELL VOLUME 96 fl (80.0-100.0); MEAN CORPUSCULAR HEMOGLOBIN 33 pg (27-31); MEAN CORPUSCULAR HGB CONC 34 g/dl (33.0-37.0); MEAN PLATELET VOLUME 11.8 fl (7.4-10.4); MONO # 0.2 K/mm3 (0.1-0.6); RED BLOOD COUNT 3.65 M/mm3 (4.20-5.60)
[2021-11-01 15:25] LABS: HEMATOCRIT 35.2 % (42.0-52.0)
[2021-11-01 15:28] LABS: PLATELET COUNT 13 K/mm3 (130-400)
--- NOTE | 2021-11-01 22:15 | NUR ---
Received report from ISHAAN Shay. Patient resting quietly in bed. A unit of platelets is infusing at this time, patient tolerating well. Vitals within normal limits. Patient denies any pain. Mild tremors visible, patient reports unable to fall asleep.
[2021-11-02] VITALS (129 sets, daily range): BP systolic 120–126; BP diastolic 93–94; PULSE 79–97; TEMP 97.6–98.5; O2SAT 64–100
[2021-11-02 05:43] LABS: HEMOGLOBIN 11.4 g/dl (13.5-18.0); MEAN CELL VOLUME 96 fl (80.0-100.0); MEAN CORPUSCULAR HEMOGLOBIN 33 pg (27-31); MEAN CORPUSCULAR HGB CONC 35 g/dl (33.0-37.0); MEAN PLATELET VOLUME 10.4 fl (7.4-10.4); RED BLOOD COUNT 3.43 M/mm3 (4.20-5.60); REDCELL DISTRIBUTION WIDTH-CV 15.6 % (11.5-14.5)
[2021-11-02 05:52] LABS: HEMATOCRIT 32.8 % (42.0-52.0); PLATELET COUNT 20 K/mm3 (130-400)
[2021-11-02 05:59] LABS: CALCIUM 8.1 mg/dL (8.4-10.2); CREATININE, serum 0.52 mg/dL (0.72-1.25); POTASSIUM 3.2 mmol/L (3.5-4.5)
[2021-11-02 06:36] LABS: BAND 5 % (0-10); EOSINOPHIL 2 % (0-4); HYPOCHROMIA 1+; LYMPHOCYTE 32 % (20.0-51.0); NEUTROPHILS 58 % (42.0-75.2); PLATELET ESTIMATE DECREASED (NORMAL)
--- NOTE | 2021-11-02 07:56 | NUR ---
RECEIVED REPORT FROM ISHAAN CANCHOLA; PATIENT AWAKE AND CURRENTLY USING THE COMMODE IN THE ROOM; PATIENT'S VITALS HAVE BEEN WITHIN NORMAL LIMITS AND HE IS STILL RECEIVING ATIVAN FOR ETOH WITHDRAWAL, ALONG WITH THE VALIUM TAPER.
[2021-11-02] MEDS ORDERED: THIAMINE 1100 MG/TAB PO (10:11)
[2021-11-02] MEDS ORDERED: K-DUR20 MEQ PO (10:11)
[2021-11-02] MEDS ORDERED: MAG-OX 400400 MG/TAB PO (10:11)
[2021-11-02] MEDS ORDERED: DUO-KAPS1 CAP PO (10:11)
[2021-11-02] MEDS ORDERED: ZOFRAN 4MG T4 MG/TAB PO (10:12)
[2021-11-02] MEDS ORDERED: ATIVAN 1MG T1 MG/TAB PO (10:12)
[2021-11-02] MEDS ORDERED: FOLIC ACID 11 MG/TA1 PO (10:12)
== END 2021-11-02 11:02 | disposition home or self-care (01) | DRG 897 ==
LOC: COL.ER 16:25 → ICU 18:00
PROVIDERS: Emergency Medicine; Nurse Practitioner Family; ADMIT Student in an Organized Health Care Education/Training Program
DX: F10.239 Alcohol dependence with withdrawal, unspecified (principal); E87.2 Acidosis; J45.909 Unspecified asthma, uncomplicated; E87.6 Hypokalemia; D69.6 Thrombocytopenia, unspecified; F17.210 Nicotine dependence, cigarettes, uncomplicated; E87.8 Other disorders of electrolyte and fluid balance, not elsewhere classified; E83.51 Hypocalcemia; D64.9 Anemia, unspecified; E83.42 Hypomagnesemia; R25.1 Tremor, unspecified; E80.6 Other disorders of bilirubin metabolism; Y90.3 Blood alcohol level of 60-79 mg/100 ml; Z88.6 Allergy status to analgesic agent
CPT/HCPCS: 99223-AI; 99233-AI; 99239; C9113; J2060; J2550; J2765; J3411; J3475; J3480; J7030; J7042; P9035

== ENCOUNTER 2021-11-19 22:10 | Inpatient (IN) | payer OTHER ==
[~2021-11-19] VITALS: Ht 167.6 cm; Wt 67.8 kg
[~2021-11-19 22:10] MED LIST changes: +ATIVAN 1MG T1 MG/TAB PO; +DUO-KAPS1 CAP PO; +K-DUR20 MEQ PO
[2021-11-19 23:22] LABS: HEMATOCRIT 43.7 % (42.0-52.0); MEAN CELL VOLUME 100 fl (80.0-100.0); MEAN CORPUSCULAR HEMOGLOBIN 34 pg (27-31); MEAN CORPUSCULAR HGB CONC 34 g/dl (33.0-37.0); MEAN PLATELET VOLUME 10.3 fl (7.4-10.4); PLATELET COUNT 92 K/mm3 (130-400); RED BLOOD COUNT 4.38 M/mm3 (4.20-5.60)
[2021-11-19 23:29] LABS: BAND 41 % (0-10); LYMPHOCYTE 2 % (20.0-51.0); NEUTROPHILS 53 % (42.0-75.2); NUCLEATED RED BLOOD CELL 1 (0-6); PLATELET ESTIMATE NORMAL (NORMAL)
[2021-11-19 23:38] LABS: ALBUMIN 3.7 gm/dL (3.5-5.0); CALCIUM 8.4 mg/dL (8.4-10.2); CREATININE, serum 0.74 mg/dL (0.72-1.25); POTASSIUM 3.8 mmol/L (3.5-4.5)
[2021-11-20] VITALS (718 sets, daily range): BP systolic 110–131; BP diastolic 85–98; PULSE 77–107; TEMP 98–99.1; O2SAT 92–100
[2021-11-20 03:19] LABS: COLLECTION METHOD CLEAN CATCH
[2021-11-20 03:26] LABS: MUCOUS Present (NOT PRESENT); PH 6 (5-8); SQUAMOUS EPITHELIAL 0-2 /hpf (0-10); URINE APPEARANCE Hazy (CLEAR/HAZY); URINE BACTERIA None Seen /hpf (NONE SEEN); URINE BILIRUBIN Positive (NEGATIVE); URINE BLOOD 1+ (NEGATIVE); URINE COLOR Amber (YELLOW); URINE GLUCOSE Negative (NEGATIVE); URINE KETONE 2+ (NEGATIVE); URINE LEUKOCYTE ESTERASE Negative (NEGATIVE); URINE NITRATE Negative (NEGATIVE); URINE PROTEIN(semi-quant) 2+ (NEGATIVE); URINE UROBILINOGEN >=4.0 (NEGATIVE)
[2021-11-20 03:36] LABS: TRICYCLIC ANTIDEPRESS URINE NEGATIVE
--- NOTE | 2021-11-20 04:30 | NUR ---
Patient arrived to ICU 4 at 0315. Patient was assisted to [facility] for bowel movement. Gait unsteady with visible tremors. Assessment completed and charted. Home medications send to pharmacy. Patient on clear liquid diet. Requested water and jello. Provided to patient. No emesis after eating. Patient had x2 large loose BMs. Remains alert and orientated. Requesting to advance diet. Educated patient on purpose of slow progression. Sangita MOSS was updated regarding tolerating clears, will reassess advancing diet later on today. Patient was given 1mg of ativan for CIWA of 8. Resting in bed watching television.
[2021-11-20 06:43] LABS: BASO % 0.7 % (0.0-2.0); GRAN # 4.7 K/mm3 (1.4-6.5); GRAN % 84.4 % (42.2-75.2); LYMPH # 0.5 K/mm3 (1.2-3.4); LYMPH % 8.7 % (20.0-51.0); MEAN CELL VOLUME 96 fl (80.0-100.0); MEAN CORPUSCULAR HGB CONC 35 g/dl (33.0-37.0); MEAN PLATELET VOLUME 9.2 fl (7.4-10.4); MONO # 0.3 K/mm3 (0.1-0.6); PLATELET COUNT 50 K/mm3 (130-400); RED BLOOD COUNT 3.65 M/mm3 (4.20-5.60)
[2021-11-20 06:45] LABS: HEMATOCRIT 34.9 % (42.0-52.0); HEMOGLOBIN 12.3 g/dl (13.5-18.0); MEAN CORPUSCULAR HEMOGLOBIN 34 pg (27-31)
[2021-11-20 06:50] LABS: INR 1.1 (0.8-3.0); PROTHROMBIN TIME 12.4 SECONDS (9.7-12.8)
[2021-11-20 06:56] LABS: ALBUMIN 3.1 gm/dL (3.5-5.0); BILIRUBIN,TOTAL 2.9 mg/dL (0.2-1.2); CALCIUM 7.8 mg/dL (8.4-10.2); CREATININE, serum 0.69 mg/dL (0.72-1.25); MAGNESIUM 2.2 mg/dL (1.6-2.6); POTASSIUM 3.3 mmol/L (3.5-4.5); TOTAL PROTEIN 6.5 gm/dL (6.2-8.1)
--- NOTE | 2021-11-20 07:15 | NUR ---
Report given to ISHAAN Salter
--- NOTE | 2021-11-20 07:36 | NUR ---
REPORT RECEIVED FROM ISHAAN PRICE; PATIENT CURRENTLY RESTING COMFORTABLY IN BED; HR IS TACHYCARDIC WITH RATES ABOVE 100 AND O2 SATS ARE AROUND 94% ON ROOM AIR. PATIENT HAS LR RUNNING AT 75 ML/HR INTO HIS RIGHT HAND PERIPHERAL LINE.
--- NOTE | 2021-11-20 11:12 | NUR ---
Initial visit; Patient responded to Clinical Trials Systems Administrator who talked with him about his alcoholism and the health issues it is causing. He stated he had had previous help and Clinical Trials Systems Administrator stated that along with Spiritual Care she is available to listen and did suggest he respond to any help offered to avoid further damage to his health. He wished her a good day.
--- NOTE | 2021-11-20 16:30 | NUR ---
mission worker met with patient to assess for discharge planning. Patient states he lives alone and is in process of getting a divorce. 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 Worker provided verbal and written information on advance directives. Patient will review and discuss with dialysis social worker tomorrow. Patient plans to return home upon discharge.
[2021-11-21] VITALS (591 sets, daily range): BP systolic 100–127; BP diastolic 68–92; PULSE 66–87; TEMP 98.1–99.1; O2SAT 59–100
--- NOTE | 2021-11-21 04:00 | NUR ---
PT HAS REQUIRED NO ATIVAN OVER NIGHT. ONCE INCIDENCE OF NAUSEA WITHOUT VOMITTING, NO TREMORS, STEADY GAIT TO AND FROM TOILET IN ROOM. TOLERATING PO LIQUIDS AND SOME SNACKS.
[2021-11-21 06:45] LABS: BASO % 0.7 % (0.0-2.0); EOS # 0.1 K/mm3 (0.0-0.7); EOS % 1.7 % (0.0-4.0); GRAN # 2.7 K/mm3 (1.4-6.5); GRAN % 65.6 % (42.2-75.2); HEMOGLOBIN 12.1 g/dl (13.5-18.0); LYMPH % 25.4 % (20.0-51.0); MEAN CELL VOLUME 98 fl (80.0-100.0); MEAN CORPUSCULAR HEMOGLOBIN 34 pg (27-31); MEAN CORPUSCULAR HGB CONC 35 g/dl (33.0-37.0); MEAN PLATELET VOLUME 10.5 fl (7.4-10.4); MONO # 0.2 K/mm3 (0.1-0.6); MONO % 5.9 % (1.7-9.3); RED BLOOD COUNT 3.52 M/mm3 (4.20-5.60); REDCELL DISTRIBUTION WIDTH-CV 14.5 % (11.5-14.5)
[2021-11-21 06:53] LABS: HEMATOCRIT 34.6 % (42.0-52.0)
[2021-11-21 06:54] LABS: PLATELET COUNT 37 K/mm3 (130-400)
--- NOTE | 2021-11-21 07:00 | NUR ---
0700 BEDSIDE SHIFT REPORT GIVEN. PATIENT ALERT AND ORIENTED WITH ONE PIV WITH LR GOING. PATIENT HAS NO COMPLAINTS AT THIS TIME. WILL CONTINUE TO MONITOR.
[2021-11-21 07:10] LABS: ALBUMIN 2.8 gm/dL (3.5-5.0); BILIRUBIN,TOTAL 2.7 mg/dL (0.2-1.2); CALCIUM 8.1 mg/dL (8.4-10.2); CREATININE, serum 0.56 mg/dL (0.72-1.25); MAGNESIUM 1.3 mg/dL (1.6-2.6); TOTAL PROTEIN 5.9 gm/dL (6.2-8.1)
[2021-11-21 07:22] LABS: POTASSIUM 2.9 mmol/L (3.5-4.5)
--- NOTE | 2021-11-21 11:05 | NUR ---
Tooth Cutter followed up with patient to discuss discharge planning. Patient lives alone in [place] and has a cane for ambulation. SW provided mental health and drug/alcohol resources. Patient plans to participate in AA meetings and is interested in inpatient treatment at a later time as he has a couple important events in November. Patient states his son will be visiting in November and he also has a court date for a DUI. Patient states he has to remain sober in order for his son to come visit from [place]. SW followed up on DPOA-HC and patient would like to designate his friend, Srinivas Morley (ph#[phone]). SW assisted patient in completing the form. JOSESITO and ISHAAN Quesada provided witness signature. JOSESITO provided original and copies to patient, then placed copy in chart. Discharge Plan: Home
--- NOTE | 2021-11-21 19:26 | NUR ---
BEDSIDE SHIFT REPORT GIVEN. PT LAYING IN BED RESTING QUIETLY. PT DENIES ANY PAIN AT THIS TIME.
--- NOTE | 2021-11-21 22:54 | NUR ---
PT DENIES ANY PAIN BUT DOES ENDORSE NAUSEA AND VOMITING X 1 EPISODE. DENIES NEED FOR NAUSEA MEDICATIONS AT THIS TIME. DISCUSSED WITH PT AND HE WILL SHOWER THIS SHIFT. MILD TREMORS NOTED. STEADY GATE.
[2021-11-22] VITALS (11 sets, daily range): BP systolic 103–142; BP diastolic 73–88; PULSE 63–98; TEMP 83–99.1
[2021-11-22 08:52] LABS: HEMATOCRIT 39.9 % (42.0-52.0); MEAN CELL VOLUME 97 fl (80.0-100.0); MEAN CORPUSCULAR HEMOGLOBIN 35 pg (27-31); MEAN CORPUSCULAR HGB CONC 36 g/dl (33.0-37.0); MEAN PLATELET VOLUME 10.6 fl (7.4-10.4); PLATELET COUNT 60 K/mm3 (130-400)
[2021-11-22 09:06] LABS: HEMOGLOBIN 14.2 g/dl (13.5-18.0)
[2021-11-22 09:11] LABS: CALCIUM 8.6 mg/dL (8.4-10.2); CREATININE, serum 0.54 mg/dL (0.72-1.25); MAGNESIUM 1.1 mg/dL (1.6-2.6); PHOSPHOROUS 0.8 mg/dL (2.3-4.7); POTASSIUM 3.6 mmol/L (3.5-4.5)
--- NOTE | 2021-11-22 10:52 | NUR ---
Follow-up visit; Very short visit, patient states he is doing better and thanked No Experience for asking. He was on his way out of his room to get a snack. No Experience wished him well.
--- NOTE | 2021-11-22 12:44 | NUR ---
PATIENT DOING WELL THIS SHIFT. HAS NOT COMPLAINED OF ANY PAIN. STATES HE HAS HAD 2-3 EPISODES OF DIARRHEA, DENIES ABD PAIN OR BLOOD IN STOOLS. CONTINUES TO RECIEVE IV FLUIDS ORDERED. DOES WELL WITH FOOD AND FLUID INTAKE WHEN GIVEN ZOFRAN FOR NAUSEA. NO WITHDRAW SYMPTOMS OBSERVED BY THIS NURSE. A&O X4. INDEPENDENT IN ROOM.
[2021-11-22 15:12] LABS: THYROID STIMULATING HORMONE 2.927 uIU/mL (0.350-4.940)
--- NOTE | 2021-11-22 22:33 | NUR ---
AAOX3 CIWA WNL, PATIENT HAS DENIES ANY HALLUCINATION. NO C/O N/V PATIENT CONTINUES TO GO DOWN TO VENDING MACHING AND CONSUMING CHIPS AND FLAMING CHEEOTS WIHT NO NAUSEA OR VOMITING NOTED. TOLERATING DIET BUT IS NON COMPLIANT. PATIENT HAS NO PAIN OR DISCOMFORT. REMAINS ON IV FLUIDS FOR POTASSIUM REPLACEMENT AND HYDRATION. INDEPENDENT IN ROOM WILL CONTINUE TO MONITOR FOR ANY CHANGES THROUGHOUT SHIFT.
[2021-11-23] VITALS (11 sets, daily range): BP systolic 107–129; BP diastolic 74–91; PULSE 66–86; TEMP 97.5–98.6
[2021-11-23 07:21] LABS: MEAN CELL VOLUME 99 fl (80.0-100.0); MEAN CORPUSCULAR HGB CONC 35 g/dl (33.0-37.0); MEAN PLATELET VOLUME 10.3 fl (7.4-10.4); PLATELET COUNT 70 K/mm3 (130-400); REDCELL DISTRIBUTION WIDTH-CV 14.4 % (11.5-14.5)
[2021-11-23 07:24] LABS: HEMATOCRIT 33.8 % (42.0-52.0); MEAN CORPUSCULAR HEMOGLOBIN 34 pg (27-31)
[2021-11-23 07:27] LABS: HEMOGLOBIN 11.7 g/dl (13.5-18.0)
[2021-11-23 07:48] LABS: CALCIUM 7.8 mg/dL (8.4-10.2); CREATININE, serum 0.54 mg/dL (0.72-1.25); MAGNESIUM 1.5 mg/dL (1.6-2.6); PHOSPHOROUS 1.3 mg/dL (2.3-4.7); POTASSIUM 3.2 mmol/L (3.5-4.5)
[2021-11-23 08:11] LABS: BAND 6 % (0-10); EOSINOPHIL 4 % (0-4); LYMPHOCYTE 28 % (20.0-51.0); NEUTROPHILS 52 % (42.0-75.2); PLATELET ESTIMATE DECREASED (NORMAL)
[2021-11-24] VITALS (11 sets, daily range): BP systolic 108–130; BP diastolic 71–87; PULSE 62–82; TEMP 97.5–98.6
--- NOTE | 2021-11-24 00:16 | NUR ---
NO SEIZURE ACTIVITY NOTED PATIENT DID START ON KEPPRA EDUCATED ON MEDICATION. SIDE RAILS PADDED, SAFETY ALARM IN PLACE. FLUIDS D/C ON DAY SHIFT. PATIENT HAVING ADEQUATE INTAKE NO N/V NOTED. CIWA SCORE CONTINUES TO RANGE FROM 0-1 SLIGHT TREMORS NOTED NO DIAPHORESIS VITALS WNL. CALL LIGHT WITHIN REACH WILL CONTINUE TO MONITOR FOR ANY CHANGES.
[2021-11-24 08:04] LABS: HEMOGLOBIN 12.5 g/dl (13.5-18.0); MEAN CELL VOLUME 101 fl (80.0-100.0); MEAN CORPUSCULAR HEMOGLOBIN 34 pg (27-31); MEAN CORPUSCULAR HGB CONC 34 g/dl (33.0-37.0); MEAN PLATELET VOLUME 10.5 fl (7.4-10.4); PLATELET COUNT 100 K/mm3 (130-400); RED BLOOD COUNT 3.66 M/mm3 (4.20-5.60); REDCELL DISTRIBUTION WIDTH-CV 14.5 % (11.5-14.5)
[2021-11-24 08:06] LABS: HEMATOCRIT 36.9 % (42.0-52.0)
[2021-11-24 08:19] LABS: CALCIUM 8.9 mg/dL (8.4-10.2); CREATININE, serum 0.55 mg/dL (0.72-1.25); MAGNESIUM 1.7 mg/dL (1.6-2.6); POTASSIUM 3.3 mmol/L (3.5-4.5)
--- NOTE | 2021-11-24 08:50 | NUR ---
Pt doing well this morning, no complaints of pain, very talkative. Pt has had breakfast and was starting to doze back off to sleep. He reported that he did not get much sleep last night. No needs verbalized, seizure pads on, bed alarm on, call light within reach
[2021-11-24 09:47] LABS: BAND 1 % (0-10); EOSINOPHIL 6 % (0-4); LYMPHOCYTE 27 % (20.0-51.0); NEUTROPHILS 55 % (42.0-75.2)
[2021-11-24 09:48] LABS: PLATELET ESTIMATE DECREASED (NORMAL)
--- NOTE | 2021-11-24 18:34 | NUR ---
About an hour ago, pt tried leaving the floor. He had a street clothes with hospital gown over them and had a couple belongings, no all. Informed him that he cannot leave the floor and has to have a staff member with him because of the seizure precautions. Pt was not happy with this but did go back to his room. Pt starting to get a little irritable, but does comply
[2021-11-25] VITALS (7 sets, daily range): BP systolic 100–140; BP diastolic 73–95; PULSE 61–81; TEMP 97.6–98.9
[2021-11-25 06:45] LABS: HEMATOCRIT 39.5 % (42.0-52.0); HEMOGLOBIN 13.3 g/dl (13.5-18.0); MEAN CELL VOLUME 101 fl (80.0-100.0); MEAN CORPUSCULAR HEMOGLOBIN 34 pg (27-31); MEAN CORPUSCULAR HGB CONC 34 g/dl (33.0-37.0); PLATELET COUNT 179 K/mm3 (130-400); REDCELL DISTRIBUTION WIDTH-CV 14.7 % (11.5-14.5)
[2021-11-25 07:16] LABS: CALCIUM 9.3 mg/dL (8.4-10.2); CREATININE, serum 0.57 mg/dL (0.72-1.25); MAGNESIUM 1.4 mg/dL (1.6-2.6); PHOSPHOROUS 5.9 mg/dL (2.3-4.7); POTASSIUM 3.8 mmol/L (3.5-4.5)
[2021-11-25 07:50] LABS: BAND 11 % (0-10); EOSINOPHIL 2 % (0-4); LYMPHOCYTE 36 % (20.0-51.0); METAMYELOCYTE 1 % (0-0); NEUTROPHILS 42 % (42.0-75.2)
[2021-11-25 07:51] LABS: PLATELET ESTIMATE NORMAL (NORMAL)
--- NOTE | 2021-11-25 08:48 | NUR ---
PATIENT DISLODGED IV TO LEFT FOREARM. PATIENT HAS HAD MULTIPLE IVS PLACED AND THEY HAVE EITHER BECOME DISLODGED OR INFILTRATED. WILL COMMUNICATE IV ISSUES TO PROVIDER AND IF PATIENT WILL BE CONTINUING TO STAY INPATIENT RECCOMEND PICC PLACEMENT.
[2021-11-25] MEDS ORDERED: KEPPRA 500MG500 MG PO (09:46)
[2021-11-25] MEDS ORDERED: DUO-KAPS1 CAP PO (09:46)
[2021-11-25] MEDS ORDERED: THIAMINE 1100 MG/TAB PO (09:47)
[2021-11-25] MEDS ORDERED: MAG-OX 400400 MG/TAB PO (09:47)
== END 2021-11-25 13:00 | disposition home or self-care (01) | DRG 897 ==
LOC: COL.ER 22:10 → ICU 11-20 01:16 → MEDICAL 11-20 01:16 → ICU 11-20 11:48 → MEDICAL 11-21 17:05
PROVIDERS: Family Medicine; Physician Assistant; Student in an Organized Health Care Education/Training Program; ADMIT Internal Medicine
DX: F10.230 Alcohol dependence with withdrawal, uncomplicated (principal); E87.2 Acidosis; E44.0 Moderate protein-calorie malnutrition; E87.1 Hypo-osmolality and hyponatremia; G40.509 Epileptic seizures related to external causes, not intractable, without status epilepticus; F17.210 Nicotine dependence, cigarettes, uncomplicated; Z20.822 Contact with and (suspected) exposure to COVID-19; E87.8 Other disorders of electrolyte and fluid balance, not elsewhere classified; E83.42 Hypomagnesemia; D69.6 Thrombocytopenia, unspecified; D64.9 Anemia, unspecified; E80.6 Other disorders of bilirubin metabolism; J45.909 Unspecified asthma, uncomplicated; E87.6 Hypokalemia; E83.39 Other disorders of phosphorus metabolism; Z88.6 Allergy status to analgesic agent; Z91.018 Allergy to other foods; Z86.79 Personal history of other diseases of the circulatory system
CPT/HCPCS: 99232-AI; 99233-AI; 99239; A9575; J2060; J2405; J2550; J3411; J3475; J3480; J7030; J7120

== ENCOUNTER 2021-12-15 15:44 | Observation (INO) | payer OTHER ==
[~2021-12-15] VITALS: Ht 167.6 cm; Wt 55.0 kg
[~2021-12-15 15:44] MED LIST changes: +KEPPRA 500MG500 MG PO
[2021-12-15 16:19] LABS: BASO % 0.6 % (0.0-2.0); EOS % 0.2 % (0.0-4.0); GRAN # 4.9 K/mm3 (1.4-6.5); GRAN % 79.4 % (42.2-75.2); HEMOGLOBIN 14.8 g/dl (13.5-18.0); LYMPH # 0.9 K/mm3 (1.2-3.4); LYMPH % 14.4 % (20.0-51.0); MEAN CELL VOLUME 96 fl (80.0-100.0); MEAN CORPUSCULAR HEMOGLOBIN 34 pg (27-31); MEAN CORPUSCULAR HGB CONC 35 g/dl (33.0-37.0); MEAN PLATELET VOLUME 9.5 fl (7.4-10.4); MONO # 0.3 K/mm3 (0.1-0.6); MONO % 5.2 % (1.7-9.3); PLATELET COUNT 58 K/mm3 (130-400); RED BLOOD COUNT 4.36 M/mm3 (4.20-5.60); REDCELL DISTRIBUTION WIDTH-CV 13.5 % (11.5-14.5)
[2021-12-15 16:26] LABS: ALANINE AMINOTRANSFERASE 64 U/L (0-55); ALBUMIN 3.9 gm/dL (3.5-5.0); ALKALINE PHOSPHATASE 251 U/L (40-150); ANION GAP 31 mmol/L (7-16); AST,SGOT 213 U/L (5-34); BILIRUBIN,TOTAL 2.7 mg/dL (0.2-1.2); BLOOD UREA NITROGEN 6 mg/dL (9-21); CALCIUM 8.6 mg/dL (8.4-10.2); CARBON DIOXIDE 18 mmol/L (22-29); CHLORIDE 90 mmol/L (98-107); CREATININE, serum 0.62 mg/dL (0.72-1.25); GLUCOSE 109 mg/dL (70-99); LIPASE 110 U/L (8-78); MAGNESIUM 1.2 mg/dL (1.6-2.6); POTASSIUM 3.8 mmol/L (3.5-4.5); SODIUM 139 mmol/L (136-145); TOTAL PROTEIN 7.5 gm/dL (6.2-8.1)
[2021-12-15] MEDS ORDERED: KLOR-CON M2020 MEQ PO (16:28)
[2021-12-15 16:46] LABS: TSH w REFLEX 2.604 uIU/mL (0.350-4.940)
[2021-12-15 16:47] LABS: TROPONIN-I < 0.010 ng/mL (0.00-0.033)
[2021-12-15 20:03] VITALS: BP 126/83; PULSE 103; TEMP 98.9
[2021-12-15 22:05] VITALS: BP 115/79; PULSE 94; TEMP 98.4
[2021-12-15 22:11] LABS: COLLECTION METHOD CLEAN CATCH
[2021-12-15 22:16] LABS: MUCOUS Present (NOT PRESENT); PH 6 (5-8); SQUAMOUS EPITHELIAL None Seen /hpf (0-10); URINE APPEARANCE Clear (CLEAR/HAZY); URINE BACTERIA Rare /hpf (NONE SEEN); URINE BLOOD Negative (NEGATIVE); URINE COLOR Amber (YELLOW); URINE GLUCOSE Negative (NEGATIVE); URINE KETONE 2+ (NEGATIVE); URINE NITRATE Negative (NEGATIVE); URINE PROTEIN(semi-quant) 1+ (NEGATIVE); URINE RBC 0-2 /hpf (0-2); URINE UROBILINOGEN >=4.0 (NEGATIVE)
[2021-12-16] VITALS (12 sets, daily range): BP systolic 107–123; BP diastolic 54–89; PULSE 64–90; TEMP 97.5–99.3
--- NOTE | 2021-12-16 01:28 | NUR ---
PATIENT TO ROOM 345. ALERT AND ORIENTED. DENIES PAIN. DENIES NAUSEA. HS MEDS PER EMAR. IVF INFUSING PER ORDER. TOLERATING PO FOOD AND FLUIDS WITHOUT ISSUE. UA SENT DOWN TO LAB. SCORED 9 ON CIWA SCALE AND DOSED WITH 2 MG ATIVAN PER ORDER. SCORED 6 NEXT CHECK AND DOSED WITH 1 MG ATIVAN. TELE REMAINS IN PLACE. PATIENT IS CURRENTLY RESTING IN BED, CALL LIGHT IN REACH. DENIES ADDITIONAL NEEDS.
[2021-12-16 07:11] LABS: ALBUMIN 2.8 gm/dL (3.5-5.0); BILIRUBIN,TOTAL 3.4 mg/dL (0.2-1.2); CALCIUM 7.5 mg/dL (8.4-10.2); CREATININE, serum 0.53 mg/dL (0.72-1.25); MAGNESIUM 1.6 mg/dL (1.6-2.6); POTASSIUM 3.2 mmol/L (3.5-4.5); TOTAL PROTEIN 5.3 gm/dL (6.2-8.1)
--- NOTE | 2021-12-16 08:30 | NUR ---
PT A&O RESTING IN BED. VS STABLE AND ASSESSMENT COMPLETED. DETOX ASSESSMENT SCORED A 5 AND ATIVAN PROTOCOL NEEDING 0.5MG. PT DENIES PAIN. REPORTS NAUSEA WITH BREAKFAST. SEIZURE PRECAUTIONS IMPLEMENTED. LT HAND INT PATENT AND NO REDNESS. RT AC IV W LR AT 150 WITH NO REDNESS/PHLEBITIS. NO OTHER NEEDS AT THIS TIME. CALL LIGHT WITHIN REACH.
[2021-12-16 08:37] LABS: BASO % 0.3 % (0.0-2.0); EOS # 0.1 K/mm3 (0.0-0.7); EOS % 2.3 % (0.0-4.0); GRAN % 63.1 % (42.2-75.2); LYMPH # 0.9 K/mm3 (1.2-3.4); LYMPH % 28.8 % (20.0-51.0); MEAN CELL VOLUME 99 fl (80.0-100.0); MEAN CORPUSCULAR HGB CONC 34 g/dl (33.0-37.0); MEAN PLATELET VOLUME 10.1 fl (7.4-10.4); MONO # 0.2 K/mm3 (0.1-0.6); MONO % 5.2 % (1.7-9.3); RED BLOOD COUNT 3.58 M/mm3 (4.20-5.60); REDCELL DISTRIBUTION WIDTH-CV 13.3 % (11.5-14.5)
[2021-12-16 08:39] LABS: HEMATOCRIT 35.4 % (42.0-52.0); HEMOGLOBIN 12.1 g/dl (13.5-18.0); MEAN CORPUSCULAR HEMOGLOBIN 34 pg (27-31)
[2021-12-16 08:42] LABS: PLATELET COUNT 25 K/mm3 (130-400)
--- NOTE | 2021-12-16 10:51 | NUR ---
JOSESITO met with the patient to discuss discharge plan and re-admit. The patient recently discharged from the hospital on 11/25 and returned home. He had been admitted for alcohol withdrawal seizures. He is admitted for observation this time for same diagnosis. JOSESITO met with the patient to discuss discharge plan. The patient lives alone in [place]. He reports independence with ADLs and has a cane. The patient was set up with the primary care provider, ISA Reynolds; and his appointment was scheduled on 11/29. The patient states that he did not go to this appointment. He states that he still went and seen his old PCP, Dr. Godwin, and that Dr. 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 He receives his medications from [facility] and reports no difficulties obtaining his meds. The patient's DPOA-HC is in EMR and it designates his friend, Srinivas Morley (ph#[phone]). The patient plans to return home upon discharge. JOSESITO addressed the patient's alcohol use since his last admission. The patient states that he drank some after he was discharged and stopped drinking five days ago. He states that he has been going to AA meeting and hanging out at the pool and trying to be more social, so he will not drink. JOSESITO discussed inpatient treatment. The patient states that he really just needs a psychiatrist. JOSESITO informed him of Dr. Dejesus at the [facility] and provided him with a list of other local mental health clinics. The patient had no other questions for JOSESITO. JOSESITO updated the patient's RN about his PCP stating he had a cyst on his brain. *Discharge plan: home*
--- NOTE | 2021-12-16 14:00 | NUR ---
PT RESTING IN BED. PT DENIES N/V AND PAIN. NO OTHER COMPLAINTS AT THIS TIME. CALL LIGHT WITHIN REACH.
--- NOTE | 2021-12-16 19:26 | NUR ---
Patient assessed around 190. Alert and oriented, able to make needs known. Does have occasional confusion. High fall risk precautions in place. Denies pain and discomfort. IV fluids running per orders to peripheral IV to right upper arm. Has INT to left hand. LS CTA. HRR. Telemetry in place, normal sinus. Capillary refill less than 3 seconds. Non-tenting skin turgor. BSAx4. Good appetite, eatting pizza in room. Denies nausea and upset stomach. No edema. Patient reports that he continues to have some balance problems. Reminded not to get up on own and voiced understanding. In bed with call light within reach. Bed alarm on.
--- NOTE | 2021-12-16 23:33 | NUR ---
Patient complaining of insomnia. Call placed to ISA Quesada. New order for Melatonin received and given per orders.
[2021-12-17] VITALS (7 sets, daily range): BP systolic 109–126; BP diastolic 81–93; PULSE 65–84; TEMP 97.8–99.1
--- NOTE | 2021-12-17 05:55 | NUR ---
Patient denies pain and discomfort. Continues on IV fluids per orders. Has not been sleeping much this shift. Voices no questions, needs, or concerns at this time. In bed with call light within reach. Bed alarm on.
--- NOTE | 2021-12-17 08:00 | NUR ---
PT A&O SITTING UP IN BED. ASSESSMENT COMPLETED AND AM MEDS GIVEN. CIWA ASSESSMENT SCORING A 2 NOT REQUIRING ATIVAN. SEIZURE PRECUATIONS IMPLEMENTED. VS STABLE AND TELE IN PLACE. LUNGS ARE CLEAR AND BOWEL SOUNDS PRESENT. NO OTHER NEEDS AT THIS TIME. CALL LIGHT WITHIN REACH.
[2021-12-17] MEDS ORDERED: KEPPRA 500MG500 MG PO (09:08)
[2021-12-17] MEDS ORDERED: MIRTAZAPINE7.5 MG PO (09:09)
[2021-12-17] MEDS ORDERED: DUO-KAPS1 CAP PO (09:10)
[2021-12-17] MEDS ORDERED: MAG-OX 400400 MG/TAB PO (09:10)
[2021-12-17] MEDS ORDERED: NATURE'S BLEND100 M2 PO (09:11)
[2021-12-17] MEDS ORDERED: THIAMINE 1100 MG/TAB PO (09:11)
[2021-12-17] MEDS ORDERED: PROTONIX 40MG T40 MG PO (09:12)
[2021-12-17] MEDS ORDERED: FOLIC ACID 11 MG/TA1 PO (09:12)
[2021-12-17 10:07] LABS: CALCIUM 8.6 mg/dL (8.4-10.2); CREATININE, serum 0.54 mg/dL (0.72-1.25); MAGNESIUM 1.5 mg/dL (1.6-2.6); POTASSIUM 3.6 mmol/L (3.5-4.5)
--- NOTE | 2021-12-17 15:05 | NUR ---
PATIENT IV MAG COMPLETE. RN DC'D IV AND COVERED SITE WITH GAUZE [employer]AN. GAVE DISCHARGE INSTRUCTIONS, E-SCRIPTS SENT, AND DISCUSSED F/U APT. ANSWERED QUESTIONS/CONCERNS. PATIENT IS DRESSED, PACKED AND ESCORTED OUT VIA AMBULATORY. PATIENT TAKING [facility] BUS HOME.
== END 2021-12-17 15:15 | disposition home or self-care (01) ==
LOC: COL.ER 15:44 → SURG 17:00 → EDBEDREQ 18:24 → SURG 12-17 15:15
PROVIDERS: Emergency Medicine; Family Medicine; ADMIT Internal Medicine
DX: F10.239 Alcohol dependence with withdrawal, unspecified (principal); R74.02 Elevation of levels of lactic acid dehydrogenase [LDH]; R11.2 Nausea with vomiting, unspecified; E83.42 Hypomagnesemia; D69.6 Thrombocytopenia, unspecified; E04.1 Nontoxic single thyroid nodule; R74.01 Elevation of levels of liver transaminase levels; E80.6 Other disorders of bilirubin metabolism; Z20.822 Contact with and (suspected) exposure to COVID-19; E87.6 Hypokalemia; F10.24 Alcohol dependence with alcohol-induced mood disorder; I47.1 Supraventricular tachycardia; F17.210 Nicotine dependence, cigarettes, uncomplicated; Z28.310 Unvaccinated for COVID-19; Z28.9 Immunization not carried out for unspecified reason
CPT/HCPCS: 99233-AI; 99239; G0378; J2060; J2405; J3411; J3475; J7030; J7120

== ENCOUNTER 2022-01-13 18:20 | Observation (INO) | payer OTHER ==
[~2022-01-13] VITALS: Ht 167.6 cm; Wt 63.0 kg
[~2022-01-13 18:20] MED LIST changes: +KLOR-CON M2020 MEQ PO; +MIRTAZAPINE7.5 MG PO; +NATURE'S BLEND100 M2 PO; +PROTONIX 40MG T40 MG PO
[2022-01-13 19:10] LABS: BASO % 0.8 % (0.0-2.0); EOS % 0.4 % (0.0-4.0); GRAN # 3.8 K/mm3 (1.4-6.5); HEMATOCRIT 39.4 % (42.0-52.0); HEMOGLOBIN 13.8 g/dl (13.5-18.0); LYMPH # 0.8 K/mm3 (1.2-3.4); LYMPH % 14.3 % (20.0-51.0); MEAN CELL VOLUME 98 fl (80.0-100.0); MEAN CORPUSCULAR HEMOGLOBIN 34 pg (27-31); MEAN CORPUSCULAR HGB CONC 35 g/dl (33.0-37.0); MEAN PLATELET VOLUME 9.7 fl (7.4-10.4); MONO # 0.6 K/mm3 (0.1-0.6); MONO % 12.1 % (1.7-9.3); PLATELET COUNT 53 K/mm3 (130-400); RED BLOOD COUNT 4.02 M/mm3 (4.20-5.60); REDCELL DISTRIBUTION WIDTH-CV 13.4 % (11.5-14.5)
[2022-01-13 19:27] LABS: LIPASE 91 U/L (8-78)
[2022-01-13 19:28] LABS: ALCOHOL(ethanol),MEDICAL < 10 mg/dL (0-10)
[2022-01-13 20:32] LABS: ALBUMIN 3.3 gm/dL (3.5-5.0); BILIRUBIN,TOTAL 3.1 mg/dL (0.2-1.2); CALCIUM 8.6 mg/dL (8.4-10.2); CREATININE, serum 0.53 mg/dL (0.72-1.25); POTASSIUM 3.9 mmol/L (3.5-4.5); TOTAL PROTEIN 6.6 gm/dL (6.2-8.1)
[2022-01-13 22:45] VITALS: BP 123/80; PULSE 67; TEMP 98.4
--- NOTE | 2022-01-13 22:45 | NUR ---
PT ADMITTED TO ROOM 344 BY WC FROM ED. ADMISSION ASSESSMENT COMPLETED. PT A&OX4 AND INDEPENDENT. PT DENIES PN. IV FLUIDS TO RT AC. NO NEEDS AT THIS TIME. CALL LIGHT WITHIN REACH.
[2022-01-14] VITALS (9 sets, daily range): BP systolic 106–132; BP diastolic 75–87; PULSE 59–81; TEMP 97.9–98.9
[2022-01-14 08:40] LABS: BASO % 0.6 % (0.0-2.0); EOS # 0.1 K/mm3 (0.0-0.7); EOS % 3.5 % (0.0-4.0); GRAN # 1.7 K/mm3 (1.4-6.5); GRAN % 54.8 % (42.2-75.2); LYMPH % 31.2 % (20.0-51.0); MEAN CELL VOLUME 98 fl (80.0-100.0); MEAN CORPUSCULAR HEMOGLOBIN 35 pg (27-31); MEAN CORPUSCULAR HGB CONC 35 g/dl (33.0-37.0); MEAN PLATELET VOLUME 9.8 fl (7.4-10.4); MONO # 0.3 K/mm3 (0.1-0.6); MONO % 9.6 % (1.7-9.3); RED BLOOD COUNT 3.48 M/mm3 (4.20-5.60); REDCELL DISTRIBUTION WIDTH-CV 13.5 % (11.5-14.5)
[2022-01-14 08:47] LABS: HEMATOCRIT 34.1 % (42.0-52.0)
[2022-01-14 08:53] LABS: CALCIUM 7.7 mg/dL (8.4-10.2); CREATININE, serum 0.47 mg/dL (0.72-1.25); MAGNESIUM 1.8 mg/dL (1.6-2.6); POTASSIUM 3.3 mmol/L (3.5-4.5)
[2022-01-14 08:54] LABS: PLATELET COUNT 29 K/mm3 (130-400)
--- NOTE | 2022-01-14 12:36 | NUR ---
PATIENT COMPLETLY ALERT AND ORIENTED. NO CURRENT COMPLAINTS. STATES HE FEELS WELL. SHOWERED INDEPENDENTLY WITH NO ISSUES. CURRENTLY RESTING IN BED.
--- NOTE | 2022-01-14 13:53 | NUR ---
[employer] Board Attendant met with patient to discuss discharge planning. Patient was admitted for alcohol detox and has had previous admissions for this same diagnosis. Patient lives alone in [place] and sees Dr. Godwin for primary care. Patient reports he recently saw Dr. Godwin who diagnosed him with a brain cyst. Patient advised he has an appointment at [facility] in a couple weeks that he is trying to stay sober for. Patient confirmed he has transportation lined up for this appointment. Patient obtains medications from [facility] with no difficulties. Patient uses a cane for ambulation as needed and is independent with ADLS. SW addressed patient's alcohol use. Patient advised he's been to a couple AA meetings and is interested in getting [facility] Patient agreeable to have referral given to [facility]. SW inquired about inpatient treatment. Patient states he's been to [facility] twice and is not interested in returning to intpatient treatment at this time. JOSESITO provided a handout with mental health and drug/alcohol services. Patient plans to return home at time of discharge. JOSESITO contacted [facility] intake and provided patient's contact information. applications specialist will contact patient to set up services. Discharge Plan: Home
[2022-01-15 00:13] VITALS: BP 109/84; PULSE 73; TEMP 98.4
[2022-01-15 02:24] VITALS: BP 118/79; PULSE 79; TEMP 98.6
[2022-01-15 04:08] VITALS: BP 108/77; PULSE 78; TEMP 98.5
[2022-01-15 06:10] LABS: EOS # 0.1 K/mm3 (0.0-0.7); EOS % 2.1 % (0.0-4.0); GRAN # 1.6 K/mm3 (1.4-6.5); GRAN % 56.4 % (42.2-75.2); LYMPH % 32.6 % (20.0-51.0); MEAN CELL VOLUME 99 fl (80.0-100.0); MEAN CORPUSCULAR HEMOGLOBIN 35 pg (27-31); MEAN CORPUSCULAR HGB CONC 35 g/dl (33.0-37.0); MEAN PLATELET VOLUME 11.5 fl (7.4-10.4); MONO # 0.2 K/mm3 (0.1-0.6); MONO % 7.2 % (1.7-9.3); RED BLOOD COUNT 3.48 M/mm3 (4.20-5.60); REDCELL DISTRIBUTION WIDTH-CV 13.2 % (11.5-14.5)
[2022-01-15 06:23] LABS: HEMATOCRIT 34.3 % (42.0-52.0)
[2022-01-15 06:25] LABS: PLATELET COUNT 34 K/mm3 (130-400)
[2022-01-15 06:40] LABS: ALBUMIN 2.8 gm/dL (3.5-5.0); BILIRUBIN,TOTAL 3.7 mg/dL (0.2-1.2); CALCIUM 8.3 mg/dL (8.4-10.2); CREATININE, serum 0.52 mg/dL (0.72-1.25); MAGNESIUM 1.5 mg/dL (1.6-2.6); POTASSIUM 3.6 mmol/L (3.5-4.5); TOTAL PROTEIN 5.6 gm/dL (6.2-8.1)
--- NOTE | 2022-01-15 07:37 | NUR ---
PT HAS NO NEEDS AT THIS TIME
[2022-01-15 07:50] VITALS: BP 111/80; PULSE 73; TEMP 98.8
[2022-01-15] MEDS ORDERED: ZOFRAN ODT4 MG PO (09:28)
[2022-01-15] MEDS ORDERED: MAG-OX 400400 MG/TAB PO (09:28)
--- NOTE | 2022-01-15 09:39 | NUR ---
Donations Attendant attended clinical rounds with the team and patient to discharge home today. Hospitalist stressed the importance of abstaining from alcohol, especially with his upcoming appointment at [facility]. Hospitalist advised they may not procede with surgery if patient arrives intoxicated or in detox. Patient stated "I know what I need to do". SW met with patient and advised that contact was made to [facility] and their admissions plan to reach out to him. SW also encouraged patient to reach out to [facility] directly if he does not here from them in a couple days. Patient verbalized understanding. Discharge Plan: Home
--- NOTE | 2022-01-15 10:14 | NUR ---
Initial visit; Patient politely welcomed Hot Walker and thanked her for looking in on him, offering spiritual care and God's blessings.
--- NOTE | 2022-01-15 11:23 | NUR ---
DISCHARGE DISCUSSED WITH PT, ALL QUESTIONS AND CONCERNS WERE ADDRESSED, PT LEFT WITH ALL HIS BELONGINS AND HIS MEDS FROM PHARMACY, RN WALKED OUT PT
== END 2022-01-15 11:25 | disposition home or self-care (01) ==
LOC: COL.ER 18:20 → SURG 21:18
PROVIDERS: Internal Medicine; Personal Emergency Response Attendant; Student in an Organized Health Care Education/Training Program; ADMIT Internal Medicine
DX: R11.2 Nausea with vomiting, unspecified (principal); F10.988 Alcohol use, unspecified with other alcohol-induced disorder; E87.6 Hypokalemia; E83.42 Hypomagnesemia; H53.8 Other visual disturbances; R74.01 Elevation of levels of liver transaminase levels; E80.6 Other disorders of bilirubin metabolism; J45.909 Unspecified asthma, uncomplicated; Z86.79 Personal history of other diseases of the circulatory system; Z98.890 Other specified postprocedural states; Z79.899 Other long term (current) drug therapy
CPT/HCPCS: C9113; G0378; J2060; J2405; J2560; J3411; J3475; J7030

== ENCOUNTER 2022-01-16 20:26 | Observation (INO) | payer OTHER ==
[2022-01-16] VITALS (17 sets, daily range): O2SAT 97–100
[~2022-01-16] VITALS: Ht 167.6 cm; Wt 61.5 kg
[~2022-01-16 20:26] MED LIST changes: +ZOFRAN ODT4 MG PO
[2022-01-16 20:36] LABS: COLLECTION METHOD CLEAN CATCH
[2022-01-16 20:59] LABS: SQUAMOUS EPITHELIAL None Seen /hpf (0-10); URINE BACTERIA None Seen /hpf (NONE SEEN); URINE COLOR Amber (YELLOW); URINE RBC 0-2 /hpf (0-2)
[2022-01-16 21:00] LABS: URINE APPEARANCE Clear (CLEAR/HAZY); URINE BLOOD Negative (NEGATIVE); URINE GLUCOSE Negative (NEGATIVE); URINE KETONE Negative (NEGATIVE); URINE NITRATE Negative (NEGATIVE); URINE PROTEIN(semi-quant) 1+ (NEGATIVE)
[2022-01-16 21:01] LABS: TRICYCLIC ANTIDEPRESS URINE NEGATIVE
[2022-01-16 21:06] LABS: BASO % 0.6 % (0.0-2.0); EOS # 0.1 K/mm3 (0.0-0.7); GRAN # 4.6 K/mm3 (1.4-6.5); GRAN % 74.5 % (42.2-75.2); HEMOGLOBIN 11.7 g/dl (13.5-18.0); LYMPH # 0.9 K/mm3 (1.2-3.4); LYMPH % 14.2 % (20.0-51.0); MEAN CELL VOLUME 102 fl (80.0-100.0); MEAN CORPUSCULAR HEMOGLOBIN 34 pg (27-31); MEAN CORPUSCULAR HGB CONC 34 g/dl (33.0-37.0); MONO # 0.6 K/mm3 (0.1-0.6); MONO % 8.9 % (1.7-9.3); PLATELET COUNT 60 K/mm3 (130-400); RED BLOOD COUNT 3.41 M/mm3 (4.20-5.60); REDCELL DISTRIBUTION WIDTH-CV 13.7 % (11.5-14.5)
[2022-01-16 21:10] LABS: ALANINE AMINOTRANSFERASE 82 U/L (0-55); ALBUMIN 3.2 gm/dL (3.5-5.0); ALKALINE PHOSPHATASE 289 U/L (40-150); ANION GAP 16 mmol/L (7-16); AST,SGOT 217 U/L (5-34); BILIRUBIN,TOTAL 3.7 mg/dL (0.2-1.2); BLOOD UREA NITROGEN 3 mg/dL (9-21); CALCIUM 9.2 mg/dL (8.4-10.2); CARBON DIOXIDE 20 mmol/L (22-29); CHLORIDE 98 mmol/L (98-107); CREATININE, serum 0.61 mg/dL (0.72-1.25); GLUCOSE 119 mg/dL (70-99); POTASSIUM 3.7 mmol/L (3.5-4.5); SODIUM 134 mmol/L (136-145); TOTAL PROTEIN 6.9 gm/dL (6.2-8.1)
[2022-01-16 21:10] LABS: HEMATOCRIT 34.7 % (42.0-52.0)
[2022-01-16 21:11] LABS: ALCOHOL(ethanol),MEDICAL < 10 mg/dL (0-10)
[2022-01-16 23:05] LABS: INR 1.3 (0.8-3.0); PROTHROMBIN TIME 14.5 SECONDS (9.7-12.8)
[2022-01-16 23:08] LABS: PARTIAL THROMBOPLASTIN TIME 33.3 SECONDS (26.0-37.0)
[2022-01-16 23:13] LABS: MAGNESIUM 1.6 mg/dL (1.6-2.6); PHOSPHOROUS 1.9 mg/dL (2.3-4.7)
[2022-01-17] VITALS (641 sets, daily range): BP systolic 100–119; BP diastolic 72–81; PULSE 60–95; TEMP 97.7–98.1; O2SAT 73–100
--- NOTE | 2022-01-17 | NUR ---
PT ARRIVED FROM ED VIA WHEELCHAIR. AMBULATED TO BED, CONNECTED TO ICU MONITORING. GAIT STEADY AT THIS TIME, HOWEVER IN BED SEIZURE PADS IN PLACE AND PT INSTRUCTED NOT TO GET OOB WITHOUT HELP. HAS CALL LIGHT IN HAD, ORIENTED TO ROOM. MINOR TREMORS NOTED TO HANDS, OTHERWISE NO COMPLAINTS, VSS, NO N/V. WILL CONTINUE TO MONITOR.
[2022-01-17 04:49] LABS: BASO % 0.6 % (0.0-2.0); EOS # 0.1 K/mm3 (0.0-0.7); EOS % 2.7 % (0.0-4.0); GRAN # 3.1 K/mm3 (1.4-6.5); GRAN % 63.4 % (42.2-75.2); HEMATOCRIT 37.1 % (42.0-52.0); HEMOGLOBIN 12.4 g/dl (13.5-18.0); LYMPH # 1.2 K/mm3 (1.2-3.4); LYMPH % 24.5 % (20.0-51.0); MEAN CELL VOLUME 104 fl (80.0-100.0); MEAN CORPUSCULAR HEMOGLOBIN 35 pg (27-31); MEAN CORPUSCULAR HGB CONC 33 g/dl (33.0-37.0); MEAN PLATELET VOLUME 10.6 fl (7.4-10.4); MONO # 0.4 K/mm3 (0.1-0.6); PLATELET COUNT 57 K/mm3 (130-400); RED BLOOD COUNT 3.56 M/mm3 (4.20-5.60)
[2022-01-17 05:03] LABS: CREATININE, serum 0.5 mg/dL (0.72-1.25); POTASSIUM 3.5 mmol/L (3.5-4.5)
[2022-01-17] MEDS ORDERED: KEPPRA SUSP100 MG/ML PO (09:59)
--- NOTE | 2022-01-17 14:13 | NUR ---
PATIENT DISCHARGED HOME. VS STABLE. NO COMPLAINTS AT THIS TIME. IV REMOVED. DISCHARGE PAPERS SIGNED. PATIENT VERBALIZES UNDERSTANDING AND EDUCATION THAT IS PROVIDED.
== END 2022-01-17 14:17 | disposition home or self-care (01) ==
LOC: COL.ER 20:26 → ICU 23:15
PROVIDERS: Nurse Practitioner Family; Physician Assistant; ADMIT Internal Medicine
DX: R56.9 Unspecified convulsions (principal); R44.3 Hallucinations, unspecified; E04.1 Nontoxic single thyroid nodule; F17.210 Nicotine dependence, cigarettes, uncomplicated; R74.01 Elevation of levels of liver transaminase levels; S01.511A Laceration without foreign body of lip, initial encounter; D69.59 Other secondary thrombocytopenia; D53.9 Nutritional anemia, unspecified; J45.909 Unspecified asthma, uncomplicated; G40.89 Other seizures; Z28.310 Unvaccinated for COVID-19; Z28.39 Other underimmunization status; Z72.89 Other problems related to lifestyle; Z79.899 Other long term (current) drug therapy
CPT/HCPCS: G0378; J3411; J3475; J7030; J7050

== ENCOUNTER 2022-04-11 16:46 | Emergency (ER) | payer OTHER ==
[~2022-04-11] VITALS: Ht 167.6 cm; Wt 59.1 kg
[~2022-04-11 16:46] MED LIST changes: +KEPPRA SUSP100 MG/ML PO
[2022-04-11 17:04] VITALS: TEMP 97.2
[2022-04-11 17:46] LABS: BASO % 0.2 % (0.0-2.0); EOS # 0.1 K/mm3 (0.0-0.7); EOS % 0.4 % (0.0-4.0); GRAN # 13.2 K/mm3 (1.4-6.5); GRAN % 80.3 % (42.2-75.2); HEMOGLOBIN 11.9 g/dl (13.5-18.0); LYMPH # 1.6 K/mm3 (1.2-3.4); LYMPH % 9.6 % (20.0-51.0); MEAN CELL VOLUME 98 fl (80.0-100.0); MEAN CORPUSCULAR HEMOGLOBIN 36 pg (27-31); MEAN CORPUSCULAR HGB CONC 37 g/dl (33.0-37.0); MEAN PLATELET VOLUME 9.6 fl (7.4-10.4); MONO # 1.4 K/mm3 (0.1-0.6); MONO % 8.4 % (1.7-9.3); PLATELET COUNT 225 K/mm3 (130-400); REDCELL DISTRIBUTION WIDTH-CV 14.6 % (11.5-14.5)
[2022-04-11 17:47] LABS: HEMATOCRIT 32.4 % (42.0-52.0)
[2022-04-11 17:49] LABS: INR 2.7 (0.8-3.0); PROTHROMBIN TIME 31.4 SECONDS (9.7-12.8)
[2022-04-11 18:02] LABS: ALANINE AMINOTRANSFERASE 43 U/L (0-55); ALBUMIN 1.8 gm/dL (3.5-5.0); ALKALINE PHOSPHATASE 236 U/L (40-150); ANION GAP 17 mmol/L (7-16); AST,SGOT 212 U/L (5-34); BILIRUBIN,TOTAL 19.4 mg/dL (0.2-1.2); BLOOD UREA NITROGEN 19 mg/dL (9-21); C-REACTIVE PROTEIN 9.86 mg/dL (0.00-0.50); CALCIUM 8.1 mg/dL (8.4-10.2); CARBON DIOXIDE 21 mmol/L (22-29); CREATININE, serum 2.03 mg/dL (0.72-1.25); GLUCOSE 101 mg/dL (70-99); LIPASE 37 U/L (8-78); MAGNESIUM 1.9 mg/dL (1.6-2.6); SODIUM 126 mmol/L (136-145); TOTAL PROTEIN 6.7 gm/dL (6.2-8.1)
[2022-04-11 18:03] LABS: ALCOHOL(ethanol),MEDICAL < 10 mg/dL (0-10); CHLORIDE 88 mmol/L (98-107); POTASSIUM 2.7 mmol/L (3.5-4.5)
[2022-04-11 20:50] LABS: COLLECTION METHOD CLEAN CATCH
[2022-04-11 21:01] LABS: MUCOUS Present (NOT PRESENT); SQUAMOUS EPITHELIAL 0-2 /hpf (0-10); URINE BACTERIA None Seen /hpf (NONE SEEN); URINE RBC 0-2 /hpf (0-2)
[2022-04-11 21:02] LABS: PH 5.5 (5-8); URINE APPEARANCE Cloudy (CLEAR/HAZY); URINE BLOOD TRACE-INTACT (NEGATIVE); URINE GLUCOSE TRACE (NEGATIVE); URINE KETONE 1+ (NEGATIVE); URINE NITRATE Negative (NEGATIVE); URINE PROTEIN(semi-quant) 2+ (NEGATIVE)
[2022-04-11 21:04] LABS: URINE COLOR Amber (YELLOW)
[2022-04-11 21:43] VITALS: BP 101/79; PULSE 103
== END 2022-04-11 21:44 | disposition short-term general hospital (02) ==
LOC: COL.ER 16:46
PROVIDERS: Family Medicine
DX: R10.9 Unspecified abdominal pain (principal); R18.8 Other ascites; K76.6 Portal hypertension; D72.829 Elevated white blood cell count, unspecified; Z28.310 Unvaccinated for COVID-19
CPT/HCPCS: J2405; J2543; J3480; J7030; J7120; Q9967

== ENCOUNTER → 2023-03-25 | Outpatient (CLI) | payer OTHER ==
[~2023-03-25] VITALS: Ht 165.1 cm; Wt 44.8 kg
[~2023-03-25] MED LIST changes: +CEPHALEXIN500 M1 PO; +CIPRO 500MG TA500 MG PO; +KEPPRA SUSP100 MG/ML PEG; +MULTI VITAMINS1 TAB PO; +NORCO 325 MG-51 TAB PO; +VITAMIN B12 781 TAB PO
[2023-03-25 09:44] VITALS: BP 118/75; PULSE 92; TEMP 97.9
--- NOTE | 2023-03-25 10:40 | NUR ---
Pt returns from ultrasound no fluid to drain. 1045 Int removed. Catheter tip intact. 2x2 and coban to site. Pressure per coban. Pt texted ride and he is waiting for him to arrive.
== END ==
LOC: COL.RAD 09:25
DX: K70.31 Alcoholic cirrhosis of liver with ascites (principal)

== ENCOUNTER 2023-04-02 08:06 | Emergency (ER) | payer OTHER ==
[~2023-04-02] VITALS: Ht 177.8 cm; Wt 47.7 kg
[2023-04-02 09:10] LABS: BASO % 0.3 % (0.0-2.0); EOS # 0.1 K/mm3 (0.0-0.7); EOS % 1.4 % (0.0-4.0); GRAN # 6.5 K/mm3 (1.4-6.5); GRAN % 74.2 % (42.2-75.2); LYMPH # 1.4 K/mm3 (1.2-3.4); LYMPH % 15.6 % (20.0-51.0); MEAN CELL VOLUME 108 fl (80.0-100.0); MEAN CORPUSCULAR HGB CONC 35 g/dl (33.0-37.0); MEAN PLATELET VOLUME 8.6 fl (7.4-10.4); MONO # 0.7 K/mm3 (0.1-0.6); MONO % 7.9 % (1.7-9.3); PLATELET COUNT 111 K/mm3 (130-400); RED BLOOD COUNT 1.77 M/mm3 (4.20-5.60); REDCELL DISTRIBUTION WIDTH-CV 16.2 % (11.5-14.5)
[2023-04-02 09:11] LABS: INR 1.5 (0.8-3.0); PROTHROMBIN TIME 16.3 SECONDS (9.7-12.8)
[2023-04-02 09:12] LABS: HEMATOCRIT 19.1 % (42.0-52.0); HEMOGLOBIN 6.7 g/dl (13.5-18.0); MEAN CORPUSCULAR HEMOGLOBIN 38 pg (27-31)
[2023-04-02 09:16] LABS: ALBUMIN 3.2 gm/dL (3.5-5.0); CALCIUM 10.8 mg/dL (8.4-10.2); CREATININE, serum 3.04 mg/dL (0.72-1.25); POTASSIUM 4.8 mmol/L (3.5-4.5); TOTAL PROTEIN 8.7 gm/dL (6.2-8.1)
[2023-04-02 09:37] LABS: TROPONIN-I 0.014 ng/mL (0.00-0.033); TSH w REFLEX 1.631 uIU/mL (0.350-4.940)
[2023-04-02 10:35] VITALS: BP 112/86; PULSE 84; TEMP 97.8
[2023-04-02 10:40] VITALS: BP 117/78; PULSE 85; TEMP 97.8
[2023-04-02 10:45] VITALS: BP 117/78; PULSE 81; TEMP 97.7
[2023-04-02 10:50] VITALS: BP 114/75; PULSE 80; TEMP 97.6
[2023-04-02 12:48] VITALS: BP 121/78; PULSE 76; TEMP 97.6
--- NOTE | 2023-04-02 15:14 | NUR ---
CHANO received a referral from the ED Nurse this afternoon. Pt's caregiver, Srinivas Morley brought pt in b/c he became difficult to arouse at home after receiving a unit of blood earlier today. Pt has diagnoses of CKI, Liver Disease and a long h/o alcohol abuse. CHANO met with pt and his caregiver @ the bedside in the ED. Pt appeared emaciated and quite jaudice, but he was alert and generally oriented to person, time, place and situation. He states he is ready for hospice but would prefer to have the services at home. Pt has been living with his caregiver, Srinivas for the past 3 weeks. He is and has no children. He has no primary care provider. He has not seen his provider for over a year. CHANO telephoned [facility], ph# [phone], pt's choice, and spoke to Amy, the nurse to inquire if hospice MD, Dr. Guillen would accept pt. She indicated that was a possibility, however, he would need to review pt's clinicals before making a decision. CHANO collobrated with the ED MD, who agreed to complete note so clinicals could be fax. Pt's clinicals were sent to Amy @ [facility] @ fax # [phone]. Will continue to follow.
[2023-04-02 15:20] VITALS: BP 120/80; PULSE 81; TEMP 98.1
--- NOTE | 2023-04-03 10:14 | NUR ---
CHANO telephoned Amy @ [facility], ph# [phone] to f/u on referral from yesterday. Amy stated a nurse is scheduled to conduct a home assessment with pt and his HCPOA on 04/06/2023 @ 9:30am, and depending on the results, Dr. Guillen will decide then if he will accept and follow pt. CHANO faxed a copy of pt's HCPOA to the hospice agency this morning. No other concerns noted.
== END 2023-04-02 16:39 | disposition home or self-care (01) ==
LOC: COL.ER 08:06
PROVIDERS: Emergency Medicine
DX: D64.9 Anemia, unspecified (principal); N18.9 Chronic kidney disease, unspecified; K70.9 Alcoholic liver disease, unspecified; Z51.5 Encounter for palliative care; Z98.890 Other specified postprocedural states
CPT/HCPCS: P9016